=== PATIENT | male | born 1955 | race Caucasian/White ===

== ENCOUNTER 2018-07-08 16:20 | Inpatient (IN) | payer OTHER ==
[~2018-07-08] VITALS: Ht 185.4 cm; Wt 65.5 kg
[~2018-07-08 16:20] MED LIST: CASODEX50 MG PO; CORE25 PO; COUMADIN4 MG PO; COUMADIN5 MG PO; ENBREL50 MG/ML SQ; FLO4 PO; HYDROCHLOROTH12.5 M2 PO; LISINOPRIL10 MG PO; LOPERAMIDE HCL2 MG PO; LOPRESSOR100 MG PO; LUPRON DEPOT22.5 MG IM; MINTOX PLUS1 CTB PO; OYSTERCAL-D 5001 TAB PO; THE MEDICINE S150 MG PO; XGEVA120 MG/1.7 SC; [UNRECOGNIZED DRUG - OTHER] PO
--- NOTE | 2018-07-08 16:40 | NUR ---
PT WAS BROUGHT IN BY AMBULANCE FROM [facility] W/REVENUE INSPECTOR SOB SINCE LAST NIGHT. PT WAS SEEN AT CLINIC AT INSTITUTION WHERE AN XRAY WAS OBTAINED AND DETERMINED PT HAS HYDROPNEUMOTHORAX [place] [facility] [place] PT ABLE TO SPEAK IN CLEAR SHORT SENTENCES. PT PAUSES TO CATCH AIR. PT REPORTS HE USES CONDOM CATH DUE TO URINARY INCONTINENCE FROM RADIATION THERAPY TO TREAT PROSTATE CANCER. PACEMAKER W/DEFIBRILLATOR NOTED TO LEFT UPPER CHEST. PT STS HIS DEFIBRILLATOR IS [employer]. COMFORT MEASURES IMPLEMENTED. CALL LIGHT W/IN REACH. REPORT GIVEN TO VENITA MUKHERJEE TO ASSUME CARE OF PT.
[2018-07-08 17:27] LABS: BASOPHIL % 0.3 % (0-2); PLATELET COUNT 182 x10^3mcL (130-400)
[2018-07-08 17:31] LABS: RED CELL DISTRIBUTION WIDTH 17.9 % (11.5-14.5)
--- NOTE | 2018-07-08 17:42 | NUR ---
RECEIVED PT TO BED T1. PT ON 4L NC O2 AND PLACED ON FULL MONITORS. PT STS HIS PACEMAKER/DEFIBRILLATOR IS SET AT A RATE OF 70 AND HAS 90 DAYS OF BATTERY LEFT. PT HAS DIMINISHED POSTERIOR LUNG SOUNDS AND CLEAR ANTERIOR LUNG SOUNDS. SPEECH CLEAR. HOB UP 45 DEGREES. PT IS ORIENTED X 4. CIM GUARDS AT BEDSIDE. DR MCKEON AT BEDSIDE TO ASK PT QUESTIONS REGARDING REGULAR MEDICATIONS HE TAKES
[2018-07-08 17:47] LABS: BILIRUBIN TOTAL 0.8 mg/dL (0.20-1.00); CALCIUM 8.1 mg/dL (8.5-10.1); CARBON DIOXIDE 35.7 mmol/L (21-32); CREATININE SERUM 2.3 mg/dL (0.7-1.3); POTASSIUM SERUM 5.4 mmol/L (3.5-5.1); TOTAL PROTEIN, SERUM 7.9 g/dL (6.4-8.2)
[2018-07-08 17:50] LABS: ALBUMIN 3.2 g/dL (3.4-5.0)
--- NOTE | 2018-07-08 19:14 | NUR ---
REPORT GIVEN TO TRISTAN. PT REPOSITIONED UP IN BED AND IN POS OF COMFORT.
--- NOTE | 2018-07-08 19:15 | NUR ---
RECEIVED REPORT FROM BALBINA NATHAN AND ASSUMED CARE OF PATIENT. PATIENT LAYING ON GURNEY IN POSITION OF COMFORT, BREATHING EQUAL AND UNLABORED. SPEAKING IN FULL CLEAR SENTENCES. NOT IN ANY APPARENT DISTRESS. ON FULL BUTCHER MEAT. GUARDS AT BEDSIDE. WILL CONTINUE TO MONITOR.
--- NOTE | 2018-07-08 19:45 | NUR ---
EMPTIED 300ML OF CLEAR DESTINI URINE FROM LEG BAG. UA SENT TO LAB.
[2018-07-08 19:54] LABS: microscopic required? NO
[2018-07-08 20:10] LABS: UA SPECIFIC GRAVITY <=1.005 (1.005-1.035); urine erythrocyte NEGATIVE (NEGATIVE)
--- NOTE | 2018-07-08 20:55 | NUR ---
CONSENT SIGNED BY DR. MCKEON AND PATIENT FOR ADMINISTRATION OF FFP. AND FOR CHEST TUBE PLACEMENT. VERBALIZEDS UNDERSTANDING OF PROCEDURE AND BLOOD PRODUCT ADMINISTRATION.
--- NOTE | 2018-07-08 21:00 | NUR ---
PT. LAYING ON GURNEY IN POSITION OF COMFORT. BREATHING E/U. NOT IN ANY APPARENT DISTRESS. TOLERATED VITAMIN K ADMINISTRATION WELL. NO ADVERSE REACTIONS NOTED.
--- NOTE | 2018-07-08 21:10 | NUR ---
FFP ORDRED TO BE GIVEN PRIOR TO CHEST TUBE PLACEMENT. PER. DR. MCKEON FFP TO BE INFUSED OVER ONE HOUR.
--- NOTE | 2018-07-08 21:15 | NUR ---
FFP STARTED, PT. TOLERATING WELL.
--- NOTE | 2018-07-08 21:30 | NUR ---
FFP STARTED 15MIN AGO, PT. TOLERATING WELL. NO ADVERSE REACTIONS NOTED. WILL CONTINUE TO MONITOR.
[2018-07-08] MEDS ORDERED: FERROUSAL325 MG (22:24)
[2018-07-08] MEDS ORDERED: ALDACTONE25 MG GT (22:25)
[2018-07-08] MEDS ORDERED: PROA (22:25)
[2018-07-08] MEDS ORDERED: FUROSEMIDE20 MG (22:25)
--- NOTE | 2018-07-08 22:45 | NUR ---
PT. TOLERATED FFP INFUSION WELL. NO ADVERSE REACTIONS NOTE. PT. AAOX4, TALKING AND RESPONDING APPROPRIATELY. BREATHING E/U. SPEAKING IN FULL CLEAR SENTENCES. NOT IN ANY APPARENT DISTRESS AT THIS TIME. GURDS AT BEDSIDE. DR. MCKEON MADE AWARE OF COMPLETION OF FFD INFUSION.
[2018-07-09] VITALS (8 sets, daily range): BP systolic 81–97; BP diastolic 52–69; Ht 185.4 cm; Wt 65.5 kg
--- NOTE | 2018-07-09 | NUR ---
PT. REPORTS NAUSEA, DR. MCKEON MADE AWARE AND ZOFRN GIVEN PER EMAR. PT. TOLERATED WELL. WILL CONTINUE TO MONITOR.
--- NOTE | 2018-07-09 00:26 | NUR ---
DR. MCKEON AT BEDSIDE FOR CHEST TUBE PLACEMENT.
--- NOTE | 2018-07-09 01:00 | NUR ---
CHEST TUBE INSERTED TO RIGHT SIDE OF UPPER CHEST BY DR. MCKEON. DRAINIG SEROUS FLUID. SITE COVERED WITH STERILE PETROLATUM DRESSING AND COVERED WITH TAPE. CHEST TUBE HOOKED UP TO CONTINIOUS LOW SUCTION, CONTINIOUS BUBBLING NOTED IN "A" CHAMBER. APROX 400ML OF SEROUS FLUID OUT PUT NOTED. PT. SLEEPING, EASLILY ARROUSABLE. OPENS EYES TO VERBAL AND TACTILE STIMULATION. NOT IN ANY APPARENT DISTRESS. BREATHING E/U. WILL CONTINUE TO MONITOR.
--- NOTE | 2018-07-09 01:01 | NUR ---
CHEST TUBE ON WATER SEAL, WITH LOW SUCTION. CONTINUIOS BUBBLING NOTED TO WATER SEAL CHAMBER.
--- NOTE | 2018-07-09 02:05 | NUR ---
APROX 800ML OF SEROUS SANGUINEOUS DRAINGE NOTED IN DRAIN CHAMBER. PT. AWAKE AND ALERT. BREATHING E/U. REPORTS HE IS FEELING BETTER AND ITS EASIER TO BREATHE. GUARGS AT BEDSIDE. WILL CONTINUE TO MONITOR.
--- NOTE | 2018-07-09 02:13 | NUR ---
REPORT GIVEN TO KRISTOPHER NATHAN FOR FURTHER CARE OF PATIENT. ALL QUESTIONS AND CONCERNS ANSWERED.
--- NOTE | 2018-07-09 02:15 | NUR ---
B/P DECREADED TO 83/53, LEVO INCREASED TO 4MCG. DR. MCKEON MADE AWARE
--- NOTE | 2018-07-09 02:15 | NUR ---
RECEIVED REPORT FROM TRISTAN NATHAN FOR CONTINUITY OF CARE
--- NOTE | 2018-07-09 02:30 | NUR ---
1,000ML OF SEROUSANGUNIOUS DRAINAGE NOTED IN DRAINGE COMPARTMENT. DR. MCKEON MADE AWARE.
--- NOTE | 2018-07-09 02:30 | NUR ---
PT. TRANSFERED TO ICU BED 2 VIA GURNEY. SHYANN NATHAN AT BEDSIDE TO RECEIVE PT.
--- NOTE | 2018-07-09 02:53 | NUR ---
RECEIVED PT FROM ER VIA GURNEY ACCOMPANIED BY TRISTAN RN AND NEYMAR EMT. PT TRANSFERRED ONTO BED 2 WITH NO COMPLICATION. PT CONNECTED TO NUCLEAR CRITICALITY SAFETY ENGINEER, VITALS READING: PACED RHYTHM WITH HR 70, BP 87/62, MAP 71, RR 18, SPO2 99%, AXILLARY TEMP 97.8. PT IS A/OX4. SPEECH IS CLEAR. ABLE TO MAKE NEEDS KNOWN. RESPONDS TO VERBAL STIMULI. PUPILS ARE FIXED, 2 MM BILAT. DENIES CASEY. GCS=15. EENT FREE OF DISCHARGE. ORAL MUCOSA PINK AND MOIST. PT BREATHING IS E/U ON 4 L NC. LUNG SOUNDS TO THE RIGHT LUNG ARE DIMINSHED. LEFT LUNG IS CLEAR TO ANY AND DIMIN TO LLL. SYMMETRICAL CHEST EXPANSION NOTED. CHEST TUBE NOTED TO THE RIGHT UPPER WITH SEROSANGUINOUS FLUID NOTED. CHEST TUBE PLACED ON CONT LIS PER ER MD ORDER. S1/S2 HEART SOUNDS AUSCULTATED. CHEST WALL EQUAL AND SYMMETRICAL. PACEMAKER NOTED TO THE LEFT UPPER CHEST. PT C/O RIGHT SIDED CP, AT THE INSERTION OF THE CHEST TUBE, PT ASSISTED WITH POSITIONING. WEAK BUT PALPABLE PULSES X4 EXTREMITIES. SKIN IS WARM AND DRY. CAP REFILL <3 SECS. +2 PITTING EDEMA NOTED TO BLE. LFA AND RUE IV INTACT SECURED, LEVOPHED INFUSING @ 4 MCG/MIN. GENERALIZED WEAKNESS. PT ON BEDREST. LIMITED ROM TO RLE, LONG TERM CUFF IN PLACE. ABD IS SOFT/FLAT. BOWEL SOUNDS ACTIVE X4 QUADRANTS. NO BM NOTED. PT NOTED WITH CONDOM CATH IN PLACE, DRAINING YELLOW COLORED URINE INTO COLLECTION BAG SECURED AROUND HIS RLE. PER THE PT, HE IS INCONTINENT R/T RECIVING RADIATION FOR HIS PROSTATE CANCER. ECCHYMOSIS NOTED TO BUE. ERYTHEMA NOTED TO SACRAL AREA. PT ASSISTED TO REPOSITION Q2H AND PRN FOR COMFORT. PT IS CALM AND COOPERATIVE. 2 CIM LONG TERM GUARDS AT BEDSIDE. PT ORIENTED TO ROOM AND USE OF CALL LIGHT. BED IN LOW POSITION. CALL LIGHT IN REACH. WILL CONT TO MONITOR
--- NOTE | 2018-07-09 03:15 | NUR ---
NIBP 95/64, MAP 75. LEVOPHED TITRATED TO 2 MCG/MIN
--- NOTE | 2018-07-09 03:45 | NUR ---
NIBP 104/62, MAP 81. LEVOPHED TURNED OFF AT THIS TIME
--- NOTE | 2018-07-09 04:30 | NUR ---
NIBP 98/40, MAP 49. LEVOPHED RESUMED @ 2 MCG/MIN
--- NOTE | 2018-07-09 05:00 | NUR ---
NIBP 72/45, MAP 56. LEVOPHED TITRATED TO 4 MCG/MIN
--- NOTE | 2018-07-09 05:05 | NUR ---
KENNEL ATTENDANT AT BEDSIDE FOR AM LAB DRAW
[2018-07-09 05:29] LABS: BASOPHIL % 0.6 % (0-2); PLATELET COUNT 177 x10^3mcL (130-400)
[2018-07-09 05:32] LABS: RED CELL DISTRIBUTION WIDTH 17.5 % (11.5-14.5)
[2018-07-09 05:45] LABS: CARBON DIOXIDE 38.3 mmol/L (21-32); CREATININE SERUM 2.1 mg/dL (0.7-1.3); POTASSIUM SERUM 5.2 mmol/L (3.5-5.1)
--- NOTE | 2018-07-09 07:02 | NUR ---
REPORT GIVEN TO MACO NATHAN FOR CONTINUITY OF CARE. ALL QUESTIONS/CONCERNS ADDRESSED AT THIS TIME. ENDORSING ALL CARE
--- NOTE | 2018-07-09 08:14 | NUR ---
DR. PARRA AT BEDSIDE TO ASSESS PATIENT. UPDATES PROVIDED AND POC DISCUSSED. PLAN TO GIVE 250 ML BOLUS AND THEN GIVE MAINTAINENCE FLUIDS AT 40 ML/HR AND ATTEMPT TO TITRATED LOVEPHED OFF. WILL FOLLOW AND CONTINUE TO MONITOR.
--- NOTE | 2018-07-09 09:10 | NUR ---
SPO2 100% ON 3 L/MIN NASAL CANNULA, DECREASED FLOW TO 2 L/MIN.
--- NOTE | 2018-07-09 10:01 | NUR ---
SPOKE WITH [employer] TITLE VEHICLE SERVICE ATTENDANT. REQUESTED INTERROGATION. STATES THEY WILL HAVE LOCAL TITLE VEHICLE SERVICE ATTENDANT CALL UNIT AND SET UP TIME.
--- NOTE | 2018-07-09 10:04 | NUR ---
TECH AT BEDSIDE FOR ECHOCARDIOGRAM.
--- NOTE | 2018-07-09 15:45 | NUR ---
FAX SENT TO [facility] REQUESTING MEDICAL RECORDS, POLST. FAX CONFIRMATION RECEIVED. AWAITING RESPONSE FOR POL
[2018-07-09 15:51] LABS: APPEARANCE FLUID BLOODY; SOURCE FLUID THORACENTESIS
[2018-07-09 15:52] LABS: COLOR FLUID RED; RBC FLUID 12870 /cumm; WBC FLUID 1275 /cumm
--- NOTE | 2018-07-09 16:54 | NUR ---
DR. PARRA AT BEDSIDE TALKING TO PATIENT REGARDING NEED FOR CENTRAL LINE PLACEMENT. ALL QUESTIONS AND CONCERNS ADDRESSED. PATIENT CONSENTED FOR CENTRAL LINE. 500 ML NS BOLUS GIVEN PER DR. PARRA ORDER. ULTRASOUND AT BEDSIDE.
--- NOTE | 2018-07-09 17:17 | NUR ---
TRIPLE LUMEN CATHETER INSERTED TO RIJ BY DR. PARRA VIA STERILE TECHNIQUE. PATIENT TOLERATED WELL. CXR CALLED TO VERIFY PLACEMENT. WILL CONTINUE TO MONITOR.
--- NOTE | 2018-07-09 17:20 | NUR ---
MEDICAL RECORD INFORMATION SENT TO [facility] TO REQUEST POLST. CONFIRMATION RECEIVED
[2018-07-09 17:21] LABS: LYMPHOCYTE FLUID 27 %; MONOCYTE FLUID 10 %
--- NOTE | 2018-07-09 18:12 | NUR ---
NIBP 118/89, MAP 101. LEVOPHED DRIP TITRATED DOWN TO 2 MCG/MIN. WILL CONTINUE TO MONITOR.
--- NOTE | 2018-07-09 19:02 | NUR ---
RECEIVED REPORT FROM MACO NATHAN. ASSUMING ALL CARE
--- NOTE | 2018-07-09 19:20 | NUR ---
RECEIVED PT LAYING IN BED. PT IS A/OX4. SPEECH IS CLEAR. ABLE TO MAKE NEEDS KNOWN. RESPONDS TO VERBAL STIMULI. PUPILS ARE FIXED, 2 MM BILAT. GCS=15. EENT FREE OF DISCHARGE. ORAL MUCOSA PINK AND MOIST. TRACHEA MIDLINE. PT'S BREATHING IS E/U ON 2 L NC. LUNG SOUNDS TO THE RIGHT LUNG ARE DIMINSHED. LEFT LUNG IS CLEAR TO ANY AND DIMIN TO LLL. SYMMETRICAL CHEST EXPANSION NOTED. CHEST TUBE TO THE RIGHT UPPER CHEST PLACED ON CONT LIS, WITH SEROSANGUINOUS FLUID NOTED. S1/S2 HEART SOUNDS AUSCULTATED. CHEST WALL EQUAL AND SYMMETRICAL. PACEMAKER NOTED TO THE LEFT UPPER CHEST. PT IS ON LEVOHED @ 2 MCG/MIN. DENIES ANY CP. PALPABLE PULSES X4 EXTREMITIES. SKIN IS WARM AND DRY. + 1 PITTING EDEMA NOTED TO BLE. CAP REFILL < 3 SECS. LFA AND RUE IV INTACT/SECURED, NO S/S OF INFILTRATION NOTED. NS INFUSING @ 40 ML/HR. RIJ CVC IN PLACE, ALL PORTS PATENT. GENERALIZED WEAKNESS. PT ON BEDREST. LIMITED ROM TO RLE, JAIL CUFF SECURE TO PT'S BED. NO JOINT SWELLING/DEFORMITY NOTED. ABD IS SOFT/FLAT. BOWEL SOUNDS ACTIVE X4 QUADRANTS. PT HAD A MOD SIZE BROWN BM, PERICARE PROVIDED. PT NOTED WITH CONDOM CATH IN PLACE DRAINING VIA GRAVITY WITH YELLOW COLORED URINE. NO SCROTAL EDEMA NOTED. ECCHYMOSIS NOTED TO BUE. ERYTHEMA NOTED TO SACRAL AREA. 2 CIM JAIL GUARDS AT BEDSIDE. BED IN LOW POSITION. CALL LIGHT IN REACH. WILL CONT TO MONITOR
--- NOTE | 2018-07-09 19:45 | NUR ---
PT ASSISTED TO BSC. PT HAD A MOD SIZE FORMED BM, PERICARE PROVIDED. GOWN AND LINENS CHANGED. PT ASSISTED BACK IN BED AND CONNECTED TO FULL CLINICAL EXERCISE SPECIALIST. WILL CONT TO MONITOR
--- NOTE | 2018-07-09 21:35 | NUR ---
SPOKE TO DR. PARRA VIA TELEPHONE. UPDATED ON PT'S STATUS. MADE AWARE OF PT'S MOST RECENT CXR RESULTS. PER DR. PARRA, IT'S OK TO USE CENTRAL LINE. MADE AWARE CRX SHOWED QUESTION OF MILD RETRACTION OF THE CHEST TUBE. PER DR. PARRA, DR. SHARIF IS TO FOLLOW UP WITH A SURGEON IN THE MORNING. ORDER FOR CBC AND BMP. WILL CARRY OUT ORDERS
--- NOTE | 2018-07-09 23:00 | NUR ---
PT C/O ACHING LOWER BACK PAIN RATED 7/10. PT MEDICATED WITH NORCO PER EMAR. WILL CONT TO MONITOR
--- NOTE | 2018-07-10 01:30 | NUR ---
NIBP 80/48, MAP 59. LEVOPHED TITRATED TO 4 MCG/MIN
[2018-07-10 03:16] VITALS: BP 99/63
--- NOTE | 2018-07-10 03:45 | NUR ---
NIBP 118/60, MAP 74. LEVOPHED TITRATED TO 2 MCG/MIN
--- NOTE | 2018-07-10 04:25 | NUR ---
INSURANCE ANALYST AT BEDSIDE FOR AM LAB DRAW
[2018-07-10 04:52] LABS: BASOPHIL % 0.1 % (0-2); PLATELET COUNT 162 x10^3mcL (130-400)
[2018-07-10 04:59] LABS: RED CELL DISTRIBUTION WIDTH 17.4 % (11.5-14.5)
[2018-07-10 05:11] LABS: CALCIUM 8.1 mg/dL (8.5-10.1); CARBON DIOXIDE 35.1 mmol/L (21-32); CREATININE SERUM 1.6 mg/dL (0.7-1.3); POTASSIUM SERUM 4.8 mmol/L (3.5-5.1)
--- NOTE | 2018-07-10 06:18 | NUR ---
PT C/O ACHING LOWER BACK PAIN RATED 8/10. PT MEDICATED WITH NORCO PER EMAR.
--- NOTE | 2018-07-10 07:18 | NUR ---
REPORT GIVEN TO KAYLENE NATHAN FOR CONTINUITY OF CARE. ALL QUESTIONS/CONCERNS ADDRESSED AT THIS TIME. ENDORSING ALL CARE
--- NOTE | 2018-07-10 07:20 | NUR ---
REPORT GIVEN BY VENITA BOOTHE. ALL QUESTIONS ANSWERED.
--- NOTE | 2018-07-10 07:20 | NUR ---
\REPORT GIVEN BY VENITA BOOTHE. ALL QUESTIONS ANSWERED.
--- NOTE | 2018-07-10 07:25 | NUR ---
PATIENT IS IN BED SLEEPING, BED IS TO THE LOWEST POSITION. PATIENT IS ON 2L OF NASAL CANNULA. PATIENT IS BREATHING ADEQUATELY AND THERE ARE NO SIGNS OF RESPIRATORY DISTRESS. FLARE MAN IN PLACE, NSR. RIJ IS INTACT AND CDI. ABD IS ROUND AND FIRM. CONDOM CATHETER IS INTACT AND DRAINING VIA GRAVITY. URINE IS YELLOW IN COLOR WITH ADEQUATE OUTPUT. BUE ECCHYMOSIS. PATIENT IS CALM AND COOPERATIVE, AND ABLE TO FOLLOW COMMANDS. PRESSURE POINTS ARE OFFLOADED WITH PILLOWS. CALL LIGHT IS WITHIN REACH, WILL CONTINUE TO MONITOR.
[2018-07-10 07:30] VITALS: BP 98/61
--- NOTE | 2018-07-10 08:47 | NUR ---
SUCTION OFF, PER DR PARRA. PATIENT STABLE, WILL CONTINUE TO MONITOR.
--- NOTE | 2018-07-10 08:49 | NUR ---
LEVOPHED LOWERED TO 1 MCG/MIN. BP: 108/64 MAP:76
--- NOTE | 2018-07-10 08:58 | NUR ---
DR PARRA AT BEDSIDE, HAVING PATIENT DISCUSSION ON CODE STATUS AND HOSPICE.
--- NOTE | 2018-07-10 09:00 | NUR ---
PER DR PARRA ORDER, CHEST TUBE REMOVED FROM SUCTION AND PLACED TO WATER SEAL ONLY.
--- NOTE | 2018-07-10 09:20 | NUR ---
ASSISTED PATIENT WITH ORAL CARE.
--- NOTE | 2018-07-10 10:00 | NUR ---
DR BELTRAN AT BEDSIDE TO ASSESS PATIENT. UPDATES PROVIDED BY NURSING. NEW ORDERS RECEIVED. WILL CARRY OUT ORDERS. WILL CONTINUE TO MONITOR.
--- NOTE | 2018-07-10 11:24 | NUR ---
PATIENT ASSISTED WITH BEDBATH, AND LINEN CHANGE. PATIENT HAD A BM, SMALL AMOUNT OF BROWN STOOL. PATIENT ALSO ASSISTED WITH APPLICATION OF NEW CONDOM CATHETER. PATIENT STABLE, WILL CONTINUE TO MONITOR.
[2018-07-10 11:51] VITALS: BP 97/61
--- NOTE | 2018-07-10 12:30 | NUR ---
TURNED OFF LEVOPHED AT THIS TIME. PATIENTS BP: 102/51 MAP:72
--- NOTE | 2018-07-10 13:01 | NUR ---
PATIENT HAD A BM. STOOL WAS BROWN IN COLOR, MODERATE AMOUNT. PATIENT ASSISTED WITH CHANGE IN LINENS. PATIENT ASKED TO BE SAT UP TO USE THE RESTROOM, PATIENT ASSITED. PATIENT STABLE, WILL CONTINUE TO MONITOR.
--- NOTE | 2018-07-10 13:30 | NUR ---
SPOKE WITH [employer] FROM [facility] WHO PROVIDED THE FOLLOWING INFORMATION FOR PATIENT'S [employer] SCIENTIFIC AICD. SERIAL# [id number] MODEL # [id number] SOFTWARE# [id number] IMPLANTED AT [facility] JUNE 19, 2007.
--- NOTE | 2018-07-10 15:15 | NUR ---
APPLIED NEW DRESSING TO REINFORCE CHEST TUBE, PER DR PARRA
[2018-07-10 15:18] VITALS: BP 91/56
--- NOTE | 2018-07-10 16:42 | NUR ---
REPORT GIVEN TO VENITA GOLDMAN. ALL QUESTIONS ANSWERED.
--- NOTE | 2018-07-10 17:20 | NUR ---
PATIENT ARRIVED FROM ICU VIA WHEELCHAIR, WITH RN AT SIDE. NO ACUTE STRESS NOTED. PATIENT DENIES SOB, ON 2L NC. PATIENT IS STABLE AT THIS TIME. VITAL SIGN; BP:97/51 HR 71 RR:24 TEMP 98.8 PULSE OX 98% ON 2L NC. PATIENT DENIES PAIN. PATIENT IS CIM WITH X2 GUARDS AT BEDSIDE FOR SAFETY. PATIENT HAS A RIGHT IJ, LFA, AND RUE IV. IV SITE CDI, NO REDNESS, SWELLING OR PAIN NOTED. PATIENT HAS A CHEST TUBE TO RIGHT CHEST, CHEST TUBE IS NOT CURRENTLY ON SUCTION. PATIENT HAS A PACEMAKER TO LEFT CHEST, 100% PACED, TELE MONITOR IN PLACE, PATIENT DENIES CHEST PAIN. CALL LIGHT WITHIN REACH, BED IN LOW POSITION. WILL CONTINUE TO MONITOR.
--- NOTE | 2018-07-10 18:35 | NUR ---
PATIENT IS EATING IN BED, PATIENT TOLERATING DIET. PATIENT IS HAVING PACEMAKER INTERPRETATED AT THIS TIME. NO ACUTE DISTRESS NOTED. PATIENT IS STABLE AT THIS TIME. CALL LIGHT WITHIN REACH, BED IN LOW POSITION, CIM X2 AT BEDSIDE FOR SAFETY PRECAUTION. WILL CONTINUE TO MONITOR, AND ENDORSE REPORT TO NIGHT NURSE.
[2018-07-10 20:47] VITALS: BP 94/53
--- NOTE | 2018-07-10 21:31 | NUR ---
Awake and verbally responsive. No respiratory distress noted on 02 2lpm via n/c. Medicated as ordered with norco 1 tab for c/o right sided pain 7/10 with help. Chest tube intact to right chest water seal. No leakage noted. Will cont.to monitor. Call light within reach.
--- NOTE | 2018-07-11 05:00 | NUR ---
Afebrile. No significant change in condition noted. Medicated for c/o right side chest tube site pain with help. No cough or congestion observed. On zosyn IV. Had breathing treatment. In no apparent distress.
[2018-07-11 06:15] VITALS: BP 124/48
[2018-07-11 06:26] VITALS: BP 84/53
[2018-07-11 07:37] LABS: BASOPHIL % 0.6 % (0-2); PLATELET COUNT 141 x10^3mcL (130-400)
[2018-07-11 07:41] LABS: CALCIUM 8.6 mg/dL (8.5-10.1); CARBON DIOXIDE 32.1 mmol/L (21-32); CREATININE SERUM 1.4 mg/dL (0.7-1.3); POTASSIUM SERUM 4.7 mmol/L (3.5-5.1)
--- NOTE | 2018-07-11 08:00 | NUR ---
PATIENT RECEIVED AWAKE AND WITH MINIMAL MOVEMENT. PATIENT WANTS THE STAFF MINIMAL MOVEMENT NOTED. PATIENT WANTS THE STAFF TO GET THIS AND THAT FOR HIM AND REMINDED THE PATIENT HE NEEDS TO MOVE ABOUT AND KEEP MOBILTY OR HE CAN SUFFER THE POSSIBLE CLOT FORMATION, CONSTIPATION OR STASIS OF URINE. PATIENT HAS A GUARD AT BEDSIDE AND SECURITY HAS BEEN MIAINTAINED. PATINET STATES IT HURTS TO MOVE AND HE NEEDS HELP. PATIENT HAS BEEN ON THE CHEST TUBE TO DRAINAGE AND THE OUTPUT IS MINIMAL PER REPORT AND SUCTION IS OFF AT THIS TIEM THE DRESSING INTACT AND SOME FLUCTUATION NOTED TO THE FLOW BUT NO SIGNS OF LEAKING OF AIR. VITALS AT THIS TIME AT 97.0, 70, 16, 84/53, 96 ON 2 LITERS NASAL CANNULA. PATIENT ON HHN TREATMENTA DN HAS BEEN ON ZOSYN AND IV FLUIDS OF NS A SORERED. NOTED LABS ARE THE H AHD H O F8.4/25, SODIUM AT 127, AND PT AT 14.0 AND PTT AT 30.5. PATINE THS CHEST XRAY THAT IS NEGATIVE AND PATEINT HAS BEEN IWTH S31 ON THE MONITOR AND PACED. HX OF A GIVE, CHF, PROSTATE CANCER ADN HEP C. GUARDS AT BEDSIDE AND SECURITY HAS BEEN MAINTAINED.
[2018-07-11 10:13] VITALS: BP 93/41
--- NOTE | 2018-07-11 11:50 | NUR ---
PATIENT HAD A BM AND WAS ABLE TO GET UP TO THE BEDSIDE COMODE. WILL CONTINUE TO MONITOR INDICATED. PATIENT HAD NORCO AND SEEM EFFECTIVE AT THIS TIME IN RELIEVING PAIN.
[2018-07-11 13:36] VITALS: BP 102/48
[2018-07-11 17:29] VITALS: BP 91/55
--- NOTE | 2018-07-11 17:53 | NUR ---
ALOUND TO DRAIN THE FLUID FROM THE CHEST TUB AND APPROIMATELY 600ML SO FAR. THE CORPORATE FINANCIAL ANALYST HAD NOT RECEIVED ANY OUTPUT AND DID NOT DRAIN THE TUBING AND THE RESULT WAS 0 OUTPUT.
--- NOTE | 2018-07-11 18:56 | NUR ---
PATIENT HAS BEEN ON BEDRESTR AND WAS SEEN BY DR PARRA AND THE CHEST TUBE CONTINEUD TO BE ON GRAVITY FOR SHAKIRA. PATIENT CASEY HAD 600 OPUTPUT AND NOTED THE TUBING IS HOLDING SOME AND A PIECE OF TISSUE WAS OBSTRUCTING THE TUBING AND ONCE MANIPULATED THE OBTRUCTION THE CHEST TUB IS DRAINING MORE FREELY PATINE THAS GUARD AT BEDSIDE AND SECURITY MAINTAINED.
--- NOTE | 2018-07-11 19:00 | NUR ---
PATIENT HAS BEEN ON BEDREST AND WAS SEEN BY DR PARRA AND THE CHEST TUBE CONTINUED TO BE ON GRAVITY FOR SHAKIRA. PATIENT HAS HAD 600 OPUTPUT AND NOTED THE TUBING IS HOLDING SOME AND A PIECE OF TISSUE WAS OBSTRUCTING THE TUBING AND ONCE MANIPULATED THE OBTRUCTION THE CHEST TUB IS DRAINING MORE FREELY PATIENT HAS GUARD AT BEDSIDE AND SECURITY MAINTAINED. =
--- NOTE | 2018-07-11 20:16 | NUR ---
Awake and verbally responsive. No respiratory distress noted on 02 2lpm via n/c. Denies pain at this time. Able to move side to side in bed. Right chest tube on water seal. Serosanguineous drainage noted. No leaking observed. Will cont.to monitor. Call light within reach.
[2018-07-11 20:37] VITALS: BP 102/48
--- NOTE | 2018-07-12 04:10 | NUR ---
Afebrile. No significant change in condition noted. Pain managed with norco. Chest tube intact and no leaking noted. Turned and repositioned self in bed. Condom catheter in place draining yellow urine. cont.on IV zosyn.
[2018-07-12 05:08] VITALS: BP 97/56
[2018-07-12 06:33] LABS: CALCIUM 8.8 mg/dL (8.5-10.1); CARBON DIOXIDE 32.7 mmol/L (21-32); CREATININE SERUM 1.3 mg/dL (0.7-1.3)
[2018-07-12 08:40] LABS: PLATELET COUNT 153 x10^3mcL (130-400)
[2018-07-12 08:41] LABS: RED CELL DISTRIBUTION WIDTH 16.6 % (11.5-14.5)
[2018-07-12 09:00] VITALS: BP 88/53
--- NOTE | 2018-07-12 09:36 | NUR ---
COMPLAINED OF 8/10 RIGHT CHEST TUBE SITE. DRESSINGS INTACT. GIVEN NORCO 1 TAB PO. INSTRUCTED TO DO INCENTIVE SPIROMETER AFTER AN HOUR AND STATED: I JUST DID IT. I DONT WANT TO BE PUSHED." EXPLAINED THE EFFECT OF USING IS BUT STATED" I WANT TO SLEEP. I DID NOT SLEEP LAST NIGHT" CALL KARIMI WITHIN REACH. BED RAILS UP. 2 GUARDS AT BEDSIDE.
--- NOTE | 2018-07-12 09:48 | NUR ---
PAGE AT THIS TIME. LEFT PHONE # TO BE CACK BACK REGARD CHEST TUBE LEAKING.
--- NOTE | 2018-07-12 09:59 | NUR ---
DR. PARRA CALL BACK WAS MADE AWARE, CHEST TUBE LEAKING W/ SEROSANG. AND DRESSING RE-INFORCED. DRAINING 15ML BEGINING THIS SHIFT. NEW ORDER FOR CXR. PER WILL FOLLOW UP.
--- NOTE | 2018-07-12 12:04 | NUR ---
PLEUR VAC ALMOST FILLING UP. PLEUR VAC CHANGED TO A NEW ONE. DRAINING SEROSANGUINOUS. NO SHORTNESS OF BREATH. RR [address] PARRA HERE AND REQUEST TO SUTURE TO SITE TO PATIENT. NO DRAINS AT CT SITE NOTED.
--- NOTE | 2018-07-12 12:31 | NUR ---
PAGED DR. BOJORQUEZ TO REQUEST SUTURING OF CT SITE.
[2018-07-12 12:35] VITALS: BP 83/55
[2018-07-12 12:57] VITALS: BP 83/55
--- NOTE | 2018-07-12 13:03 | NUR ---
RECEIVING BREATHING TREATMENT. DENIES ANY SHORTNESS OF BREATH.HOB UP 30 DEGREES.
--- NOTE | 2018-07-12 14:01 | NUR ---
Initial Nutrition Assessment- 223T/B ALIZA BOWER MR Dx: Pneumothorax, hypotension PMHx: AFIB, CAD, CHF, HTN, pneumonia PSHx: none Labs: (07/12) NA 131L, BUN 35H Meds: Ativan, coreg, zosyn Diet: cardiac PO Intake: (07/12) breakfast 100% Ht: 185.42 cm (73") Wt: 65.5 kg (144#) BMI: 19.1 kg/m2 IBW: 184# (83 KG) %IBW: 78 UBW: ask pt. Age: 62/M Food Allergies: NKFA Skin: dressing to RT flank area Parish: 18 Edema: none GI: last BM: 07/11 Per H&P, pt is a 62 yo male h/o metastatic prostate CA, CHF cardiomyopathy pacer, pleuraleffusions [facility] resident. Presented to the ED with increased SOB throughout the day. This had been going on for days. RDN visit (07/12): Pt was alert and awake and said that he does not have N/V but has diarrhea. He has good appetite and consumed 100% of breakfast. He said that he has lactose intolerance and cannot consume milk or ice-cream, other form of dairy are fine. He also has peanut allergy. This information was forwarded to victims advocate clerk/specialist Geri. Pt is an inmate and consumes 1 boost drink/day in [facility] for his weight loss. Problem with: N: no V: no D: yes C: no Problems with: Chewing: no Swallowing: no Current appetite: good Recent wt change: unknown %wt change: unknown Vitamin/Supplement use: none Special diet at home: N/A Physical activity: N/A Education: No diet education provided at this time. Estimated Nutritional Needs Based on actual body weight 65.5 kg Energy: 5231-6246 kcal/d (30-35 kcal/kg- weight gain) Protein: 79-98 g/d (1.2-1.5 g/kg)-maintenance and preservation of lean body mass Fluid: 9040-9060 ml/d (1 ml/kcal-fluid balance) or per doctor Nutrition Diagnosis 1. Increased nutrient needs related to medical condition as evidenced by pneumonia. Intervention 1. Continue Cardiac diet. Monitor/Evaluate Goal: PO intake at least 75% of estimated needs Monitor: PO intake, Labs, GI function F/U in 3-5 days as moderate risk 07/15-
--- NOTE | 2018-07-12 14:01 | NUR ---
1. Continue Cardiac diet.
--- NOTE | 2018-07-12 15:04 | NUR ---
DR. BOJORQUEZ CALLED BACK AND INFORMED HIM RE- BLEEDING AT CHEST TUBE SITE, DRESSINGS RE-ENFORCED AND CXR DONE. STATED " I WILL BE THERE THIS AFTERNOON".
[2018-07-12 17:27] VITALS: BP 93/55
--- NOTE | 2018-07-12 17:34 | NUR ---
PATIENT SEEN BY MD BOJORQUEZ AND REMOVED CHEST TUBE DRESSINGS. NO ACTIVE BLEEDING NOTED. DRESSINGS CHANGED WITH STERILE 4X4 AND OCCLUSIVE DRESSINGS APPLIED.CALL KARIMI WITHIN REACH. BED LOW AND LOCKED. PLEURVAC DRAINING SEROSANGUINOUS FLUID. NOTED CREPITUS RIGHT UPPER CHEST. ENCOURAGED USE OF IS.HOB UP 40 DEGREES.
--- NOTE | 2018-07-12 19:30 | NUR ---
RECEIVED PT IN BED RESTING.NO ACUTE RESPIRATORY DISTRESS NOTED.DENIES ANY PAIN AT THIS TIME.ECCHYMOSIS TO BUE.BLANCHABLE REDNESS TO SACRAL AREA.RIGHT SIDE CHEST TUBE SITE,DRESSING CDI.IV SITE PATENT AND INTACT. USES COMMODE. BED IN LOWEST POSITION,CALL LIGHT WITHIN REACH. GUARD AT BEDSIDE. WILL CONTINUE TO MONITOR.
--- NOTE | 2018-07-12 21:02 | NUR ---
PT C/O PAIN AT THE BACK 11/02. MEDICATED NORCO 5/325 MG PO ORDERED. WILL CONTINUE TO MONITOR.
[2018-07-12 22:34] VITALS: BP 101/64
--- NOTE | 2018-07-13 03:18 | NUR ---
PT C/O BACK PAIN 11/02. MEDICATED NORCO 5/325 MG PO ORDERED. WILL CONTINUE TO MONITOR.
--- NOTE | 2018-07-13 05:10 | NUR ---
PT AAOX4.NO SOB NOTED.DENIES ANY PAIN AT THIS TIME. BED IN LOWEST POSITION,CALL LIGHT WITHIN REACH. WILL CONTINUE TO MONITOR.
--- NOTE | 2018-07-13 05:44 | NUR ---
PT C/O SOMETHINGS DRIPPING FROM THE CHEST TUBE. ATTEMPTED TO CHECK THE DRESSING AND OFFER TO CHANGE IT BUT PT REFUSED.PER PT MAYBE LATER.DIDN'T NOTICED DRIPPING AT THIS TIME. CHARGE CASSIE AT BEDSIDE.WILL CONTINUE TO MONITOR.
[2018-07-13 05:58] VITALS: BP 98/55
[2018-07-13 06:46] LABS: CALCIUM 8.9 mg/dL (8.5-10.1); CARBON DIOXIDE 31.9 mmol/L (21-32); CHLORIDE SERUM 95 mmol/L (98-107); CREATININE SERUM 1.2 mg/dL (0.7-1.3); GFR1 > 60 mL/min; GLUCOSE SERUM 108 mg/dL (74-106); POTASSIUM SERUM 4.4 mmol/L (3.5-5.1); SODIUM SERUM 131 mmol/L (136-145)
[2018-07-13 06:50] LABS: BASOPHIL % 0.7 % (0-2); PLATELET COUNT 170 x10^3mcL (130-400)
--- NOTE | 2018-07-13 07:21 | NUR ---
CARE ENDORSED TO DAY NURSE CELESTE.
--- NOTE | 2018-07-13 07:27 | NUR ---
SEEN ASLEEP ON INITIAL ROUNDS. EUPNEIC ON 2LPM VIA NC. RIGHT CHEST TUBE INTACT. DRY OCCLUSIVE DRESSING. PLEUR VAC ON WATER SEAL DRAINING SEROSANGUINOUS FLUID. AWAITING CXR. CALL SACHI COX. BED LOW AND LOCKED AND ALARM ON .
[2018-07-13 08:01] LABS: RED CELL DISTRIBUTION WIDTH 17.3 % (11.5-14.5)
[2018-07-13 09:15] VITALS: BP 102/63
--- NOTE | 2018-07-13 09:49 | NUR ---
ASSISTED UP TO CHAIR. DOING HIS IS 500-750ML. INSTRUCTED NOT TO GET BACK TO BED WITHOUT CALLING RN. CALL LIGHT WITHIN REACH.
--- NOTE | 2018-07-13 09:51 | NUR ---
REFUSED TO SIT OOB TO CHAIR FOR BREAKFAST BUT AGREED TO SIT ION SIDE OF BED TO EAT FOR 20 MIN.
--- NOTE | 2018-07-13 10:30 | NUR ---
ASSISTED BACK TO BED. CHEST TUBE TO PLEUR VAC INTACT. NO LEAK. HOB AT 30 DEGREES. SIDERAILS UP AND CALL KARIMI WITHIN REACH.
--- NOTE | 2018-07-13 11:30 | NUR ---
MD ADAM HERE AND NOTIFIED AND REVIEWED TODAYS CXR AND FOUND NO PNEUMOTHORAX. PATIENT WAS SEEN AND EVALUATED BY MD ADAM AND STATED: " YOU LOOK GOOD!"
[2018-07-13 12:25] VITALS: BP 94/55
--- NOTE | 2018-07-13 14:31 | NUR ---
WAS ASSISTED BY TOOL MACHINIST TO COMMODE THEN TO CHAIR. CHEST TUBE INTACT AND DRAINING SEROSANGUINOUS FLUID. WATCHING TV WITH 2 GUARDS AT BEDSIDE. CALL KARIMI WITHIN REACH.
[2018-07-13 16:41] VITALS: BP 101/57
--- NOTE | 2018-07-13 19:01 | NUR ---
RESTING IN BED. NOT IN ANY DISTRESS. CALL KARIMI WITHIN REACH.
--- NOTE | 2018-07-13 19:22 | NUR ---
PT RECEIVED A/O X4, ABLE TO MAKE NEEDS KNOWN. TELE #31, DENIES CP/PRESSURE. PULSES PALPABLE, NO EDEMA PRESENT. LUNG SOUNDS DIM TO ROBERT BASES, BREATHING IS EVEN AND UNLABORED ON 2L NC, NO RESP DISTRESS NOTED. RIGHT CHEST TUBE IN PLACE, WATER SEAL, TIDALING NOTED, DRSG CDI. ABD SOFT AND NONDISTENDED, BOWEL TONES ACTIVE X4 QUAD, DENIES N/V. CONDOM CATH IN PLACE, YELLOW URINE NOTED IN DRAINAGE BAG. GENERALIZED WEAKNESS, AMBULATORY WITH ASSIST. ECCHYMOSIS TO BUE AND NECK, BLANCHABLE REDNESS TO SACRAL AREA. PT DENIES PAIN AT THIS TIME. IV TO LFA, PATENT AND INTACT, SITE FREE FROM REDNESS OR SWELLING. BED IN LOWEST SETTING, SIDE RAILS UP X2, CALL LIGHT WITHIN REACH. GUARDS AT BEDSIDE. WILL CONT TO MONITOR.
[2018-07-13 21:45] VITALS: BP 99/61
--- NOTE | 2018-07-14 01:25 | NUR ---
PT C/O 8 BACK PAIN, PRN NORCO GIVEN ORDERED. NO ACUTE DISTRESS NOTED. WILL CONT TO MONITOR.
[2018-07-14 06:44] VITALS: BP 135/72
--- NOTE | 2018-07-14 07:15 | NUR ---
RECEIVED PATIENT AWAKE/ALERT IN BED, NO C/O PAIN AT THIS TIME. IV LFA INTACT AND PATIENT, RT CHEST TUBE INTACT, DRESSING CD ON WATER SEAL W/ SEROSANG DRAINAGE NOTED. TELE #31 NOTED. POC UPDATED. ENCOURAGE OOB TID WITH MEALS. CALL LIGHT IN REACH.
[2018-07-14 07:17] VITALS: BP 103/65
[2018-07-14 07:32] LABS: CARBON DIOXIDE 30.1 mmol/L (21-32); CHLORIDE SERUM 95 mmol/L (98-107); GFR1 > 60 mL/min; GLUCOSE SERUM 112 mg/dL (74-106); POTASSIUM SERUM 4.3 mmol/L (3.5-5.1); SODIUM SERUM 128 mmol/L (136-145)
--- NOTE | 2018-07-14 07:33 | NUR ---
PT SLEPT WELL THROUGHOUT THE EVENING. BREATHING IS EVEN AND UNLABORED ON 2L NC, NO RESP DISTRESS NOTED. RT CHEST TUBE IN PLACE DRSG CDI, WATER SEAL AND TIDALING NOTED; TOTAL OUTPUT-250 ML SEROUSANGUINEOUS. CONDOM CATH IN PLACE, YELLOW URINE NOTED IN DRAINAGE BAG. PT C/O 11/02 HEADACHE, PRN TYLENOL GIVEN ORDERED. IVF INFUSING WELL TO LFA, SITE FREE FROM REDNESS OR SWELLING. NO ACUTE CHANGES ENCOUNTERED DURING SHIFT. ALL NEEDS MET. CALL LIGHT WITHIN REACH. GUARDS AT BEDSIDE. CONTINUITY OF CARE ENDORSED TO AM NURSE. ALL QUESTIONS AND CONCERNS ADDRESSED.
[2018-07-14 07:47] LABS: BASOPHIL % 0.9 % (0-2); PLATELET COUNT 194 x10^3mcL (130-400)
[2018-07-14 07:48] LABS: RED CELL DISTRIBUTION WIDTH 17.2 % (11.5-14.5)
--- NOTE | 2018-07-14 08:58 | NUR ---
PATIENT RESTING IN BED CALM, NO DISTRESS NOTED. CALL LIGHT IN REACH. ALL PO MEDS AND NORCO 1 TAB PO ADMINISTERED. C/O BACK PAIN 11/02. ZOSYN IVPB INFUSING TO LFA IV PATENT, WARM BLANKET GIVEN PER REQUEST. GUARDS REMAIN AT BEDSIDE.
--- NOTE | 2018-07-14 10:02 | NUR ---
CALL RT FOR BREATHING TX PATIENT REQUEST FOR SOB WHEN PATIENT UP TO BSC, CHECK O2 SAT 96%; NEEDS ATTENDED.
--- NOTE | 2018-07-14 11:35 | NUR ---
CALLED AND SPOKE TO (SURGEON) AND RELAYED TO HIM THE MESSAGE FROM (MASTER GLAZIER) TO EVALUATE PT CHEST TUBE IN REGARDS TO CURRENT CHEST XRAY RESULT FOR TODAY. READ TO CXR RESULT AND RECEIVED FROM TO PREPARE PT FOR CHEST TUBE REPLACEMENT. TAYLOR NATHAN ASSIGNED TO THIS PT MADE AWARE OF ABOVE.
--- NOTE | 2018-07-14 11:52 | NUR ---
PATIENT UP IN CHAIR, ASSISTING BACK TO BED. INFORM PATIENT NEED CONSENT FOR CHEST TUBE PLACEMENT PATIENT REFUSED TO SIGN STATED WANT TO TALK TO DR. BOJORQUEZ FIRST.
[2018-07-14 12:00] VITALS: BP 103/63
--- NOTE | 2018-07-14 13:39 | NUR ---
PATIENT RESTING IN BED, DUE MEDS GIVEN. TYLENOL 650MG PO GIVEN FOR RT SIDE CHEST 08/02 AND PER PATIENT REQUEST. ZOSYN IVPB INFUSING WELL TO LFA IV PATIENT. NEEDS ATTENDED. CALL LIGHT IN REACH. 2 GUARDS AT BEDSIDE.
--- NOTE | 2018-07-14 15:17 | NUR ---
PATIENT CALL FOR RN, C/O BACK PAIN IS 8/10 AND CHEST TUBE SITE, NORCO 1 TAB PO ADMINISTERED. PATIENT STATED CONDOM CATH KEEP COMING OFF, INSTRUCT PATIENT TO USE URINAL PATIENT REPLY DIDN'T KNOW WHEN HE'S URINATE. PATIENT REQUEST FOR HUSTON CATHETER, RN INSTRUCT PATIENT OF HAVING HUSTON WOULD GET PATIENT RISK OF INFECTION, PATIENT DISREGARD NURSE TEACHING AND WANT NURSE TO CALL DOCTOR FOR HUSTON. RE-INFORCED PATIENT WITH RISK OF INFECTION W/ HUSTON CATHETER.
[2018-07-14 16:02] VITALS: BP 108/69
--- NOTE | 2018-07-14 16:05 | NUR ---
DR. BOJORQUEZ AT BEDSIDE TALK TO PATIENT AND EXPLAINED THE PROCEDURE TO PATIENT REMOVED OLD CHEST TUBE AND PLACE NEW CHEST TUBE. PATIENT AGREE AND SIGNED. ALL SUPPLIES SETUP ON TABLE FOR . GOMEZ RN AT BEDSIDE TO ASSISTING PATIENT.
--- NOTE | 2018-07-14 16:17 | NUR ---
CAME TO SEE PATIENT, DECREASE IVF TO 20ML/HR AND ORDER COUMADIN.
--- NOTE | 2018-07-14 16:44 | NUR ---
PATIENT LAYING IN BED TOLERATED WELL, RT CHEST TUBE PLACEMENT COMPLETED, DR. BOJORQUEZ ORDER STAT CXR AND CALL FOR RESULT. CURRENTLY NOT SETUP TO SUCTION. CONT TO MONITOR.
--- NOTE | 2018-07-14 17:07 | NUR ---
CALL BACK CLARIFIED COUMADIN 4MG PO, PER DR. BELTRAN TO GIVE PATIENT ONE DOSE TONIGHT, PT/INR TOMORROW. SPOKE TO PHARMACY PER DOSE TONIGHT.
--- NOTE | 2018-07-14 17:50 | NUR ---
PATIENT SAT UP IN BED EATING HIS DINNER, NO COMPLAIN. PO MEDS AND COUMADIN 4MG PO ADMINISTERED. ASSESS RT CHEST TUBE SECURED, NO LEAKING NOTED. OUTPUT 852ML SEROSANG. CONT TO MONITOR. 2 GUARDS REMAIN AT BEDSIDE.
--- NOTE | 2018-07-14 18:38 | NUR ---
CALL DR. BOJORQUEZ WITH CXR RESULT SHOWS THERE HAS BEEN INTERVAL REPOSITIONING OF THE RIGHT CHEST TUBE WITH INTERVAL DEVELOPMENT OF A MODERATE PNEUMOTHORAX NOTED OF THE RIGHT LUNG BASE. PER DR. BOJORQUEZ PLACE ON SUCTION AND NO SETTING GIVEN. CXR IN AM.
--- NOTE | 2018-07-14 18:47 | NUR ---
PAGE DR. ADAM REGARD CXR RESULT. WAITING FOR MD TO CALL BACK.
--- NOTE | 2018-07-14 19:02 | NUR ---
ENDORSE CARE TO TONYA NATHAN , F/U WITH DR. ADAM FOR CHEST TUBE SETTING. PATIENT RESTING IN BED AWAKE. NO ACUTE DISTRESS NOTED. NO C/O PAIN.
--- NOTE | 2018-07-14 19:12 | NUR ---
SPOKE TO DR. ADAM ABOUT PT'S CHEST TUBE, PER DR. ADAM, CONNECT THE CHEST TUBE TO WALL SUCTION FOR 12 HOURS. PRIMARY NURSE TONYA MADE AWARE.
--- NOTE | 2018-07-14 19:12 | NUR ---
SPOKE TO DR. ADAM ABOUT PT'S CHEST TUBE, PER DR. ADAM, CONNECT THE CHEST TUBE TO WALL SUCTION. PRIMARY NURSE TONYA MADE AWARE.
[2018-07-14 19:20] VITALS: BP 104/67
--- NOTE | 2018-07-14 19:20 | NUR ---
RECEIVED PT ASLEEP BUT EASILY AROU[place] WITH GUARDS AT BEDSIDE.BREATHIGN EASY AND NON-LABORED.O2 @ 2L/MIN VIA N/C.O2 SAT @ 100%DIMINISHED BREATHSOUNDS.CHST TUBE IN PLACED ATTACHED TO SUCTION ORDERED.ENCOURAGED USE OF INCENTIVE SPIROMETER.DENIES CHESTPAIN.BP 104/67 MMHG,HR 67.C/O INCISION PAIN AND GENERALIZED BODY ACHES 10/02.NORCO 5/325 MG PO ADMINISTERED.COMFORT MEASURES RENDERED.WILL CONTINUE TO MONITOR.
--- NOTE | 2018-07-14 23:47 | NUR ---
RECEIVED PT FROM TONYA NATHAN. PT IS RESTING IN BED WITH EYES CLOSED, BUT IS EASILY AROUSABLE. BREATHING IS EVEN AND UNLABORED ON 2L NC, RT CHEST TUBE IN PLACE TO WALL SUCTION, NO RESP DISTRESS NOTED. IVF INFUSING WELL, SITE FREE FROM REDNESS OR SWELLING. NO ACUTE DISTRESS NOTED. GUARDS AT BEDSIDE. CALL LIGHT WITHIN REACH. WILL CONT TO MONITOR.
[2018-07-15] VITALS (7 sets, daily range): BP systolic 92–136; BP diastolic 60–75
--- NOTE | 2018-07-15 03:56 | NUR ---
PT C/O 8 BACK PAIN, PRN NORCO GIVEN ORDERED. BREATHING IS EVEN AND UNLABORED, NO RESP DISTRESS NOTED. CHEST TUBE IN PLACE TO WALL SUCTION, TIDALING NOTED. NO ACUTE DISTRESS NOTED. CALL LIGHT WITHIN REACH. GUARDS AT BEDSIDE. WILL CONT TO MONITOR.
--- NOTE | 2018-07-15 06:24 | NUR ---
PT SLEPT WELL THROUGHOUT THE EVENING. BREATHING IS EVEN AND UNLABORED ON 2L NC, CHEST TUBE IN PLACE TO WALL SUCTIONS, DRSG CDI. WALL SUCTION TO BE DISCONTINUED AND CHEST TUBE TO BE DRAINED VIA GRAVITY AT 0800 AM TODAY, WILL ENDORSE TO AM NURSE. CHEST TUBE OUTPUT-400 ML SEROUSANGUINEOUS. CONDOM CATH IN PLACE. PT DENIES ANY PAIN AT THIS TIME. IVF INFUSING WELL, SITE WNL. NO ACUTE CHANGES ENCOUNTERED DURING SHIFT. ALL NEEDS MET. CALL LIGHT WITHIN REACH. GUARDS AT BEDSIDE. WILL ENDORSE CARE TO AM NURSE.
[2018-07-15 06:55] LABS: BASOPHIL % 0.7 % (0-2); PLATELET COUNT 199 x10^3mcL (130-400)
--- NOTE | 2018-07-15 07:20 | NUR ---
RECEIVED PT FROM HEALTHCARE RISK CONTROL CONSULTANT. STABLE. DENIES PAIN THIS TIME. CHEST TUBE TO GRAIVITY DRAINING SEROSANGINIOUS DRAINAGE. ATTACHED TO WALL SUCTION. SAFTEY PRECAUIONS ARE IN PLACE. WILL MONITOR.
[2018-07-15 07:30] LABS: CALCIUM 9.1 mg/dL (8.5-10.1); CARBON DIOXIDE 27.4 mmol/L (21-32); CHLORIDE SERUM 95 mmol/L (98-107); CREATININE SERUM 0.8 mg/dL (0.7-1.3); GFR1 > 60 mL/min; GLUCOSE SERUM 99 mg/dL (74-106); POTASSIUM SERUM 4.6 mmol/L (3.5-5.1); SODIUM SERUM 131 mmol/L (136-145)
--- NOTE | 2018-07-15 07:39 | NUR ---
PT IN NO ACUTE DISTRESS. CONTINUITY OF CARE ENDORSED TO MUNDO NATHAN. ALL QUESTIONS AND CONCERNS ADDRESSED.
--- NOTE | 2018-07-15 08:00 | NUR ---
CHEST TUBE ID OFF FROM WALL SUCTION NOW. PT IS STABLE.
--- NOTE | 2018-07-15 08:35 | NUR ---
SPOKE WITH KRYSTAL IN RADIOLOGY, SHE ASKED THAT WE HOLD THE PATIENTS PRADAXA DUE TO PATIENTS UPCOMING THORECENTISIS "TOMORROW OR THE NEXT". HELD PER REQUEST.
--- NOTE | 2018-07-15 09:35 | NUR ---
NEW ORDER TO SET CHEST TUBE WALL SUCTION AT 15. ORDER ACKNOWLEDGED AND CARRIED OUT.
--- NOTE | 2018-07-15 09:35 | NUR ---
NEW ORDER PER DR RODRIGUEZ TO SET CHEST TUBE SUCTION AT 15. ORDER ACKNOWLEDGED AND CARRIED OUT.
--- NOTE | 2018-07-15 09:40 | NUR ---
DR PETERSEN AT BEDSIDE TO SEE PATIENT AT THIS TIME. NOTIFIED PATIENT THAT HE WILL NOT BE GOING HOME TODAY, THORACENTISIS IS PENDING.
--- NOTE | 2018-07-15 11:00 | NUR ---
PT RESTING COMFORTABLY IN BED. NO DISTRESS NOTED. CHEST TUBE DRAINING SEROANGINIOUS DRAINAGE.SAFETY PRECAUTIONS IN PLACE. CALL LIGHT WITHIN REACH. WILL MONITOR
--- NOTE | 2018-07-15 11:40 | NUR ---
Follow-up Nutrition Assessment- 223T/B ALIZA BOWER MR Dx: Pneumothorax, hypotension Labs: (07/15) NA 131L, BUN 20.0H Meds: coreg, zosyn Diet: cardiac PO intake: (07/14) breakfast 100%, lunch/dinner: not documented Weights: (07/09) 65.5 kg Skin: ecchymosis BUE and neck, erythema to sacral Parish: 19 Edema: none Last BM: 07/13 Per H&P, pt is a 62 yo male h/o metastatic prostate CA, CHF cardiomyopathy pacer, pleural effusions [facility] resident. Presented to the ED with increased SOB throughout the day. This had been going on for days. Per Progress note (07/14): Insertion of a new chest tube on the right side under local anesthesia. RDN Visit (07/15): pt was busy with other health career development manager. Information was obtained from VENITA Gomez. She said that pt has good appetite and does not have any N/V/D/C at this time. RDN visit (07/12): Pt was alert and awake and said that he does not have N/V but has diarrhea. He has good appetite and consumed 100% of breakfast. He said that he has lactose intolerance and cannot consume milk or ice-cream, other form of dairy are fine. He also has peanut allergy. This information was forwarded to lab clerk Geri. Pt is an inmate and consumes 1 boost drink/day in senior living for his weight loss. Estimated Nutritional Needs Based on actual body weight 65.5 kg Energy: 6056-6452 kcal/d (30-35 kcal/kg- weight gain) Protein: 79-98 g/d (1.2-1.5 g/kg)-maintenance and preservation of lean body mass Fluid: 8117-3467 ml/d (1 ml/kcal-fluid balance) or per doctor Nutrition Diagnosis 1. Increased nutrient needs related to medical condition as evidenced by pneumonia. (ongoing) Intervention 1. Continue Cardiac diet. 2. Recommend Ensure Enlive/ daily. Monitor/Evaluate Previous goal: cont cardiac diet (met) Goal: PO intake at least 75% of estimated needs Monitor: PO intake, Labs, GI function F/U in 3-5 days as moderate risk
--- NOTE | 2018-07-15 11:40 | NUR ---
1. Continue Cardiac diet. 2. Recommend Ensure Enlive/ daily.
--- NOTE | 2018-07-15 13:00 | NUR ---
PT RESTING COMFORTABLY. CHEST TUBE INTACT AND DRAINING PROPERLY. SAFETY PRECAUTIONS IN PLACE. WILL MONITOR
--- NOTE | 2018-07-15 17:00 | NUR ---
CHEST TUBE DRAIN CANISTER CHANGED AND SPECIMEN FOR PLEURAL FLUID COLLECTED PER FOR CYTOLOGY . PT DENIES PAIN. COOPERATED WELL. PLEURAL FLUID DRAINING TO CHEST TUBE WITH SEROSANGINIOUS DRAINAGE. PT RESTING IN BED COMFORTABLY.
--- NOTE | 2018-07-15 18:48 | NUR ---
PATIENT RESTING COMFORTABLY IN BED. DENIES ANY PAIN OR RESPIRATORY DISTRESS AT THIS TIME. PT STABLE. TOLERATED ALL CARES WELL. CHEST TUBE INTACT AND DRAINING SEROANGINIOUS DRAINAGE. NS RUNNING AT 20ML/HR. IV INTACT AND PATENT. SAFETY PRECAUTIONS IN PLACE. CALL LIGHT WITHIN REACH. WILL REPORT OFF TO NEXT SHIFT.
--- NOTE | 2018-07-15 20:00 | NUR ---
PT RECIEVED AAO REG RESP WITH DIMINISHED TO ROBERT LOWER BASES,PT HAS A CHEST TUBE TO THE RT SIDE WITH TPO SUCTION DRIAN WITH TINGE BLOOD OUTPUT,PT ON TELE MONITOR PACED,NO CHEST PAIN AT THIS TIME,IV INFUSING WELL WITH THE SITE PATENT AND INTACT,BED IN THE LOW POSITION AND LOCKED,KEPT CLEAN AND DRY TO TOUCH,PT HAS A CONDOM CATH WITH DESTINI URINE OUTPUT,ECCHYMOSIS TO THE BUE NECK AND ERYHTMIA TO THE SCROTUM,BED IN THE LOW POSITION AND LOCKED,CALL LIGHT EASY REACHED AND WILL CONTINUE TO MONITOR.
--- NOTE | 2018-07-15 22:00 | NUR ---
NEW CONDOM CATH WAS PUT ON THE PATIENT,WILL CONTINUE TO MONITOR.
--- NOTE | 2018-07-16 01:45 | NUR ---
PT RESTING AT THIS TIME,AND WILL CONTINUE TO MONITOR.
[2018-07-16 05:43] VITALS: BP 97/63
[2018-07-16 07:03] LABS: BASOPHIL % 0.8 % (0-2); PLATELET COUNT 211 x10^3mcL (130-400)
[2018-07-16 07:05] LABS: CALCIUM 9.3 mg/dL (8.5-10.1); CARBON DIOXIDE 30.3 mmol/L (21-32); CHLORIDE SERUM 96 mmol/L (98-107); GFR1 > 60 mL/min; GLUCOSE SERUM 108 mg/dL (74-106); SODIUM SERUM 131 mmol/L (136-145)
[2018-07-16 07:32] LABS: RED CELL DISTRIBUTION WIDTH 16.9 % (11.5-14.5)
--- NOTE | 2018-07-16 07:43 | NUR ---
PT RESTING AT THIS TIME,STILL WITH CHEST TUBE TO SUCTION AT 15 ML,REG TRESP NO SON DIMNISHED TO ROBERT LOWER BASES ON 2L N/C SAT 97%,HOB,IV INFUSIMG WELL WITH THE SITE PATENT AND INTACT,PT HAS THE CONDOM CATH,PT WITH ECCHYMOSIS TO THE BUE,ERYTHEMIA TO THE SCROTUM,KEPT CLEAN AND DRY TO TOUCH,ON TELE MONITOR AND IN AFIB PACED NO ECTOPY OR CHEST PAIN AT THIS TIME,CALL LIGHT EASY REACHED AND WILL CONRINUE TO MONITOR.
[2018-07-16 09:13] VITALS: BP 102/65
--- NOTE | 2018-07-16 11:03 | NUR ---
PT KEPT CLEAN AND DRY TO TOUCH V/S STABLE,CALL LIGHT EASY REACHED AND WILL CONTINUE TO MONITOR.
--- NOTE | 2018-07-16 11:40 | NUR ---
ASSUMED CARE OF PATIENT FROM ANTWAN NATHAN. PATIENT IS RESTING IN BED. CHEST TUBE IN PLACE CONNECTED TO SUCTION. NO DISTRESS NOTED. WILL CONTINUE TO MONITOR PATIENT AND MAINTAIN SAFETY.
[2018-07-16 12:57] VITALS: BP 103/62
--- NOTE | 2018-07-16 13:25 | NUR ---
RECEIVED PT FROM VENITA RODRIGUES. PT SEEN LYING IN BED, AAOX4. NO SOB NOTED, ON 2LPM/NC. LUNG SOUNDS DIMINISHED ON THE BASES AND RIGHT SIDE OF THE LUNG. W/ CHESTTUBE IN PLACE ON THE RIGHT SIDE DRAINING TO SUCTION, NOTED SEROSANGUINEOUS OUTPUT. DRESSING ON THE RIGHT CHEST IS CDI. ON TELE# 31, 100% PACED ON THE MONITOR. W/ ECCHYMOSIS ON BUE, NECK AND RIGHT CHEST. W/ ERYTHEMA ON THE SCROTAL AREA. IV SITE ON THE LFA GAUGE 22 IS PATENT AND INTACT. SIDE RAILS UPX2. CALL LIGHT ON REACH. WILL CONT TO MONITOR
--- NOTE | 2018-07-16 15:30 | NUR ---
PT HAS HIS EYES CLOSED, NO S/S OF PAIN AND SOB NOTED. STILL W/ RIGHT CHEST TUBE ON WALL SUCTION AT 15MMHG. WILL CONT TO MONITOR
[2018-07-16 18:02] VITALS: BP 101/55
--- NOTE | 2018-07-16 18:07 | NUR ---
PT AAOX4. NO C/O SOB AND PAIN AT THIS TIME. STILL W/ RIGHT SIDED CHEST TUBE ON WALL SUCTION AT 15MMHG, DRESSING CDI. W/ CONDOM CATHETER DRAINING W/ YELLOW COLORED URINE. IV SITE ON THE LFA PATENT AND INTACT. HOB KEPT ELEVATED AT 45 DEG. SIDE RAILS UPX2. CALL LIGHT ON REACH. NEEDS ARE ATTENDED. WILL CONT TO MONITOR
--- NOTE | 2018-07-16 19:20 | NUR ---
BEDSIDE REPORT GIVEN TO RICKY FOR CONTINUITY OF CARE
--- NOTE | 2018-07-16 20:09 | NUR ---
Awake and verbally responsive. No respiratory distress noted on 02 2lpm via n/c. Chest tube intact connected to wall suction @ 15mmHg. Denies pain at this time. Denies n/v. 100% paced rhythm. Condom cath intact draining yellow urine. Will cont.to monitor. Call light within reach.
[2018-07-16 21:43] VITALS: BP 96/58
--- NOTE | 2018-07-17 04:44 | NUR ---
Afebrile. No significant change in condition noted. Remained chest tube to low wall suction. No leaking. No SOB noted. Denies chest pain. Up in the commode. Activity tolerated well. Had HHN treatment given by RT. Pain controlled. In no apparent distress.
[2018-07-17 05:48] VITALS: BP 99/64
[2018-07-17 07:27] LABS: CALCIUM 8.6 mg/dL (8.5-10.1); CARBON DIOXIDE 31.3 mmol/L (21-32); CHLORIDE SERUM 97 mmol/L (98-107); GFR1 > 60 mL/min; GLUCOSE SERUM 103 mg/dL (74-106); POTASSIUM SERUM 5.2 mmol/L (3.5-5.1); SODIUM SERUM 129 mmol/L (136-145)
--- NOTE | 2018-07-17 07:39 | NUR ---
A+OX4, TELE 31, 100% PACED, PULSES MODERATE AND EQUAL ROBERT, NO EDEMA NOTED, LUNG SOUNDS DIMINISHED, HUMIDIFIED 2L NC, R CHEST TUBE TO WALL SUCTION 15 MMHG INTACT, DRESSING CDI, BOWEL SOUNDS ACTIVE, CONDOM CATH INTACT, GENERALIZED WEAKNESS, ABLE TO MOVE ALL EXTREMITIES, ECCHYMOSIS BUE, NECK AND R CHEST, IV IN LFA WITH NS@ 20 ML/HR, SITE WNL, NA 129, K 5.2, BUN 24.0.
[2018-07-17 08:08] LABS: BASOPHIL % 0.9 % (0-2); PLATELET COUNT 207 x10^3mcL (130-400)
[2018-07-17 08:11] LABS: RED CELL DISTRIBUTION WIDTH 16.9 % (11.5-14.5)
--- NOTE | 2018-07-17 09:47 | NUR ---
PT RESTING IN BED, NO RESPIRATORY DSITRESS NOTED, COMPLAINING OF PAIN, REQUESTING NORCO, NORCO PO GIVEN, GUARDS AT BEDSIDE. DR SHARIF AT BEDSIDE TO SPEAK TO PT. CALL LIGHT WITHIN REACH.
[2018-07-17 10:03] VITALS: BP 98/56
--- NOTE | 2018-07-17 11:57 | NUR ---
PT STATES CONDOM CATH CAME OFF. REPLACED CONDOM CATH AND SECURED TO PT SHAFT. ASSISTED PT TO SIT IN CHAIR. NO RESPRIATORY DSITRESS NOTED, CALL LIGHT WIHIN REACH.
--- NOTE | 2018-07-17 13:37 | NUR ---
PT STATES CONDOM CATH AGAIN CAME OFF. PT CONT TO REQUEST WE OBTAIN HIS CONDOM CATHS FROM [facility]. PLACED NEW CONDOM CATH ON PT AND SECURED TO SHAFT. PT COMPLAINING OF PAIN, REQUESTING NORCO, NORCO PO GIVEN, NO RESPRIATORY DSITRESS NOTED, CALL LIGHT WITHIN REACH, GAZENON AT BEDSIDE.
--- NOTE | 2018-07-17 14:24 | NUR ---
SPOKE TO [facility] AND [employer] RELATIONS CONSULTANT STATED THEY WILL SEND THE PT CONDOM CATHS BUT UNSURE OF TIME.
--- NOTE | 2018-07-17 14:32 | NUR ---
PT RESTING IN BED, NO RESPIRATORY DSITRESS NOTED, APPEARS TO BE SLEEPING, CALL LIGHT WITHIN REACH, GAURDS AT BEDSIDE.
[2018-07-17 14:38] VITALS: BP 94/54
--- NOTE | 2018-07-17 16:01 | NUR ---
PT STATES CONDOM CATH CAME OFF AGAIN. NEW CONDOM CATH PLACED AND SECURED TO PT SHAFT. NO RESPRIATORY DSITRESS NOTED, GAURDS AT BEDSIDE. CALL LIGHT WITHIN REACH.
--- NOTE | 2018-07-17 17:38 | NUR ---
CHEST TUBE CHAMBER/CONTAINER CHANGED AND REPLACED, DRESSING TO R CHEST CDI, PT COMPLAINING OF PAIN, NORCO PO GIVEN, NO RESPRIATORY DSITRESS NOTED. CHEST TUBE OUTPUT: 700 ML YELLOW DRAINAGE. MILADYS AT BEDSIDE.
[2018-07-17 17:58] VITALS: BP 100/64
--- NOTE | 2018-07-17 18:44 | NUR ---
PT RESTING IN BED, NO RESPIRATORY DSITRESS NOTED, STATES PAIN IS TOLERABLE AT THIST TIME, GAURDS AT BEDSIDE, CALL LIGHT WITHIN REACH.
--- NOTE | 2018-07-17 19:28 | NUR ---
ENDORSED CARE TO GIANCARLO NATHAN.
--- NOTE | 2018-07-17 19:41 | NUR ---
RECEIVED PT FROM DAY SHIFT RN. PT AAOX4 DENIES HEADACHE OR DIZZINESS. TELE #31 100% PACED. PT DENIES CHEST PAIN OR PRESSURE. DIMINISHED LUNG SOUNDS ON 2L/MIN NC WITH HUMIDIFIER. PT HAS A CHEST TUBE ON THE RIGHT SIDE OF CHEST, WITH SUCTION. GENERALIZED WEAKNESS NOTED. CONDOM CATHETER DRAINING YELLOW URINE. IV LFA PATENT, INFUSING WELL. NO SIGNS OF ACUTE DISTRESS NOTED. TWO GUARDS AT BEDSIDE. CALL BUTTON WITHIN REACH. WILL CONTINUE TO MONITOR.
[2018-07-17 21:04] VITALS: BP 95/57
--- NOTE | 2018-07-17 21:41 | NUR ---
PT REPORTED HAVING BACK PAIN 9/10, MEDICATED PER EMAR. WILL CONTINUE TO MONITOR.
--- NOTE | 2018-07-18 00:53 | NUR ---
PT RESTING, BREATHING EVEN AND UNLABORED WITH NO SIGNS OF DISTRESS NOTED. CHEST TUBE IN PLACE TO WALL SUCTION. PT ON NC 2L/MIN NC NO SOB NOTED. CALL BUTTON WITHIN REACH. TWO GUARDS AT BEDSIDE. WILL CONTINUE TO MONITOR.
[2018-07-18 05:44] VITALS: BP 117/66
--- NOTE | 2018-07-18 06:31 | NUR ---
PT SLEPT ON AND OFF THROUGHOUT THE NIGHT WITH NO SIGNS OF DISTRESS. NC 2L WITH HUMIDIFIER, NO SOB NOTED. CHEST TUBE IN PLACE TO WALL SUCTION. NO ACUTE DISTRESS NOTED. IV PATENT AND INFUSING WELL. PT REPORTED HAVING BACK PAIN THROUGHOUT THE NIGHT, MEDICATED PER EMAR WITH SOME RELIEF. IV PATENT AND INFUSING WELL. GUARDS AT BEDSIDE. SAFETY PRECAUTIONS IN PLACE. WILL CONTINUE TO MONITOR AND ENDORSE CARE TO DAY SHIFT RN.
[2018-07-18 07:01] LABS: PLATELET COUNT 211 x10^3mcL (130-400)
[2018-07-18 07:20] LABS: RED CELL DISTRIBUTION WIDTH 17.1 % (11.5-14.5)
[2018-07-18 07:26] LABS: CALCIUM 8.8 mg/dL (8.5-10.1); CHLORIDE SERUM 96 mmol/L (98-107); GFR1 > 60 mL/min; GLUCOSE SERUM 125 mg/dL (74-106); POTASSIUM SERUM 4.7 mmol/L (3.5-5.1); SODIUM SERUM 129 mmol/L (136-145)
--- NOTE | 2018-07-18 07:34 | NUR ---
PT RESTING, BREATHING EVEN AND UNLABORED WITH NO SIGNS OF DISTRESS NOTED. IV PATENT AND INFUSING WELL. NO SIGNS OF ACUTE DISTRESS NOTED. SAFETY PRECAUTIONS IN PLACE. CALL BUTTON WITHIN REACH. GUARDS AT BEDSIDE. ENDORSED CARE TO DAY SHIFT RN, ALL QUESTIONS ADDRESSED.
--- NOTE | 2018-07-18 07:57 | NUR ---
A+OX4, NO RESPIRATORY DISTRESS NOTED, TELE 31, 100% PACED, PULSES MODERATE AND EQUAL ROBERT, NO EDEMA NOTED, LUNG SOUNDS DIMINISHED, 2L NC, CHEST TUBE TO R CHEST CDI ATTACHED TO WALL SUCTION @ 15 MMHG, BOWEL SOUNDS ACTIVE, CONDOM CATH INTACT AND DRAINING YELLOW URINE, GENERALIZED WEAKNESS, DISCOLORATION BUE, NECK , AND R CHEST, CHEST TUBE DRESSING TO R CHEST CDI, IV IN LFA WITH NS @ 20 ML/HR, SITE WNL, RBC 3.23, H/H 9.2/28, NA 129, CL 96, BUN 23.0.
[2018-07-18 09:24] VITALS: BP 99/60
--- NOTE | 2018-07-18 09:25 | NUR ---
PT AGITATED, RUDE, COMPLAINING OF PAIN, REQUESTING NORCO, NORCO PO GIVEN, NO RESPIRATORY DSITRESS NOTED, CALL LIGHT WITHIN REACH, GAURDS AT BEDSIDE.
--- NOTE | 2018-07-18 12:16 | NUR ---
PT RESTING IN BED, NO RESPIRATORY DSITRESS NOTED NOTED, STATES PAIN IS TOLERABLE AT THIS TIME, GUARDS AT BEDSIDE, CALL LIGHT WITHIN REACH.
--- NOTE | 2018-07-18 12:29 | NUR ---
DR SHARIF TELEPHONE ORDERED TO CONT ZOSYN FOR 7 MORE DAYS.
[2018-07-18 12:35] VITALS: BP 95/60
--- NOTE | 2018-07-18 12:44 | NUR ---
1. Continue Cardiac diet. 2. Continue Ensure Enlive/ daily.
--- NOTE | 2018-07-18 12:44 | NUR ---
Follow-up Nutrition Assessment- 223T/B ALIZA BOWER MR Dx: Pneumothorax, hypotension Labs: (07/18) NA 129L, BUN 23.0H, BG 125H Meds: coreg, Lasix, zosyn Diet: cardiac PO intake: (07/18) breakfast 50%, (07/16) 60% dinner Weights: (07/09) 65.5 kg Skin: R chest tube dressing, discoloration to BUE Parish: 19 Edema: none Last BM: 07/18 Per H&P, pt is a 62 yo male h/o metastatic prostate CA, CHF cardiomyopathy pacer, pleural effusions [facility] resident. Presented to the ED with increased SOB throughout the day. This had been going on for days. Per Progress note (07/14): Insertion of a new chest tube on the right side under local anesthesia. RDN Visit (07/18): pt was alert and awake and said that he ate most of his breakfast this morning. Pt does not have any N/V but complains of diarrhea due to antibiotics. Pt has been drinking Ensure Enlive daily. RDN Visit (07/15): pt was busy with other health field care manager. Information was obtained from VENITA Gomez. She said that pt has good appetite and does not have any N/V/D/C at this time. RDN visit (07/12): Pt was alert and awake and said that he does not have N/V but has diarrhea. He has good appetite and consumed 100% of breakfast. He said that he has lactose intolerance and cannot consume milk or ice-cream, other form of dairy are fine. He also has peanut allergy. This information was forwarded to jose martin Barragan. Pt is an inmate and consumes 1 boost drink/day in alf for his weight loss. Estimated Nutritional Needs Based on actual body weight 65.5 kg Energy: 4116-4364 kcal/d (30-35 kcal/kg- weight gain) Protein: 79-98 g/d (1.2-1.5 g/kg)-maintenance and preservation of lean body mass Fluid: 1925-3233 ml/d (1 ml/kcal-fluid balance) or per doctor Nutrition Diagnosis 1. Increased nutrient needs related to medical condition as evidenced by pneumonia. (ongoing) Intervention 1. Continue Cardiac diet. 2. Continue Ensure Enlive/ daily. Monitor/Evaluate Previous goal: cont cardiac diet, ensure enlive /daily (met) Goal: PO intake at least 75% of estimated needs Monitor: PO intake, Labs, GI function F/U in 7 days as low risk 5/2
--- NOTE | 2018-07-18 13:20 | NUR ---
PT RESTING IN BED, NO RESPIRATORY DSITRESS NOTED, COMPLAINING OF PAIN, REQUESTING NORCO, NORCO PO GIVEN, CALL LIGHT WITHIN REACH, GAURDS AT BEDSIDE.
--- NOTE | 2018-07-18 13:25 | NUR ---
PT STATES CONDOM CATH CAME OFF. MILADYS BROUGHT CONDOM CATH FROM [facility]. PLACED NEW CONDOM CATH ON PT, ASSISTED PT TO SIT IN CHAIR. PT CONT TO BE RUDE AND DEMANDING. CALL LIGHT WITHIN REACH.
--- NOTE | 2018-07-18 16:23 | NUR ---
PT RESTING IN BED, APPEARS TO BE SLEEPING, NO RESPRIATORY DSITRESS NOTED, CALL LIGHT WITHIN REACH, MILADYS AT BEDSIDE.
--- NOTE | 2018-07-18 17:08 | NUR ---
PT RESTING IN BED, COMPLAINING OF PAIN, REQUESTING NORCO, NORCO PO GIVEN, NO RESPRIATORY DSITRESS NOTED, CALL LIGHT WITHIN REACH.
[2018-07-18 18:01] VITALS: BP 103/60
--- NOTE | 2018-07-18 18:49 | NUR ---
PT RESTING IN BED, NO RESPIRATORY DSITRESS NOTED, APPEARS TO BE SLEEPING, GAURDS AT BEDSIDE, CALL LIGHT WITHIN REACH.
--- NOTE | 2018-07-18 19:08 | NUR ---
ENDORSED CARE TO GIANCARLO NATHAN.
--- NOTE | 2018-07-18 19:42 | NUR ---
RECEIVED PT FROM DAY SHIFT RN. PT AAOX4 DENIES HEADACHE OR DIZZINESS. TELE #31 100% PACED WITH BBB HR 70. PT DENIES CHEST PAIN OR PRESSURE. DIMINISHED LUNG SOUNDS ON 2L/MIN NC WITH HUMIDIFIER. PT HAS A CHEST TUBE ON THE RIGHT SIDE OF CHEST, WITH WALL SUCTION. GENERALIZED WEAKNESS NOTED. CONDOM CATHETER DRAINING YELLOW URINE. IV LFA PATENT, INFUSING WELL. NO SIGNS OF ACUTE DISTRESS NOTED. TWO GUARDS AT BEDSIDE. CALL BUTTON WITHIN REACH. WILL CONTINUE TO MONITOR.
--- NOTE | 2018-07-18 21:20 | NUR ---
PT REPORTED HAVING BACK PAIN 11/02. MEDICATED PER EMAR. WILL MONITOR.
[2018-07-18 21:23] VITALS: BP 97/61
--- NOTE | 2018-07-19 00:15 | NUR ---
PT RESTING, BREATHING EVEN AND UNLABORED, NC IN PLACE NO SOB NOTED. CHEST TUBE IN PLACE TO WALL SUCTIONED. IV PATENT, INFUSING WELL. SAFETY PRECAUTIONS IN PLACE. GUARDS AT BEDSIDE. WILL CONTINUE TO MONITOR.
--- NOTE | 2018-07-19 01:32 | NUR ---
PT REPORTED BACK PAIN, MEDICATED PER EMAR. WILL MONITOR.
--- NOTE | 2018-07-19 02:00 | NUR ---
PT RESTING, BREATHING EVEN AND UNLABORED, NC IN PLACE. CHEST TUBE IN PLACE. IV PATENT, INFUSING WELL. CALL BUTTON WIHTIN REACH. GUARDS AT BEDSIDE. WILL MONITOR.
--- NOTE | 2018-07-19 05:56 | NUR ---
PT REPORTED HAVING BACK PAIN, REQUESTING PAIN MEDICATION. MEDICATED PER EMAR. WILL MONITOR.
[2018-07-19 06:10] VITALS: BP 96/63
[2018-07-19 06:56] LABS: BASOPHIL % 0.8 % (0-2); PLATELET COUNT 196 x10^3mcL (130-400)
--- NOTE | 2018-07-19 07:09 | NUR ---
RECEIVED PATIENT RESTING COMFORTABLY IN BED WITH CIM OFFICERS AT BEDSIDE. IV TO LFA IS PATENT AND INFUSING NS @ 20 ML/HR. NO REDNESS OR PAIN. TELE # [address] PT DENIES CHEST PAIN. CHEST TUBE TO RT CHEST WITH SUCTION @ 15MMHG. PT ON O2 2L NC. NO C/O SOB AND NO DISTRESS NOTED. ALL QUESTIONS AND CONCERNS ADDRESSED.
[2018-07-19 07:17] LABS: CARBON DIOXIDE 31.4 mmol/L (21-32); CHLORIDE SERUM 95 mmol/L (98-107); CREATININE SERUM 0.9 mg/dL (0.7-1.3); GFR1 > 60 mL/min; GLUCOSE SERUM 103 mg/dL (74-106); POTASSIUM SERUM 5.5 mmol/L (3.5-5.1); SODIUM SERUM 131 mmol/L (136-145)
--- NOTE | 2018-07-19 07:35 | NUR ---
PT AWAKE NO SIGNS OF DISTRESS NOTED. NC IN PLACE NO SOB NOTED. CHEST TUBE IN PLACE TO WALL SUCTION. IV PATENT AND INFUSING WELL. SAFETY PRECAUTIONS IN PLACE. GUARDS AT BEDSIDE. ENDORSED CARE TO DAY SHIFT RN, ALL QUESTIONS ADDRESSED.
--- NOTE | 2018-07-19 08:09 | NUR ---
SPOKE WITH DR SHARIF TO NOTIFY OF NA + 131, K+ 5.[address] SHARIF ORDERED C.DIFF AND KAYAEXALATE.
--- NOTE | 2018-07-19 09:22 | NUR ---
DR SHARIF IN TO SEE AND ASSESS PATIENT.
[2018-07-19 09:39] VITALS: BP 111/59
--- NOTE | 2018-07-19 11:48 | NUR ---
PT C/O BEING COLD. ORAL TEMP TAKEN 97.6 WARM BLANKET APPLIED.
--- NOTE | 2018-07-19 12:42 | NUR ---
IN TO ADMINISTER VELTASSA PER MD ORDER. PT REFUSED AND WOULD LIKE ME TO RETURN IN 10 MINUTES.
[2018-07-19 12:48] VITALS: BP 95/69
[2018-07-19 18:01] VITALS: BP 96/56
--- NOTE | 2018-07-19 19:30 | NUR ---
RECEIVED PT RESTING IN BED, NO ACUTE DISTRESS NOTED. CIM PATIENT, 2 CORRECTIONAL OFFICERS AT BEDSIDE. PT AOX4, DENIES CASEY/DIZZINESS. TELE #31 100% PACED, PT WITH CARDIOMYOPATHY PACER IN PLACE DENIES CP. PULSES PALPABLE BILAT, DENIES NUMBNESS/TINGLING IN FEET. PT SHACKLED TO RT ANKLE, SKIN INTACT, CAP REFILL < 3 SEC. DENIES PAIN IN BLE. RESP EVEN AND UNLABORED WITH CHEST TUBE, CONNECTED TO WALL SUCTION 15CC. CHEST TUBE APPLIANCE SECURED TO RT SIDE OF BED, ON FLOOR. SECRETIONS NOTED TO BE SEROSANGANEOUS. WILL CONTINUE TO MONITOR OUTPUT. ABD SOFT, ROUND, DENIES ABD PAIN. PT REPORTS RECENT DIARRHEA, YET NEEDS HIS IMMODIUM D/T HIS METASTATIC CA. WILL MEDICATE REQUESTED. PER DAYSHIFT NURSE, PT HAD REPORTS DIARRHEA AFTER ADMISSION, DR. KOLE Penny,. DIFF SAMPLE, WILL OBTAIN WHEN POSSIBLE. PT HAS CONDOM CATH DRAINING YELLOW URINE TO GRAVITY, DENIESS DYSURIA. GENERALIZED WEAKNESS, ABD TO TRANSFER TO BSC WITH ASSISTANCE. ECCHYMOSIS TO BUE/NECK GIRISH. DENIES PAIN. PT SKIN INTACT NEAR CHEST TUBE SITE, DSG CDI. WILL CONTINUE TO MONITOR CLOSELY. PT REPORTS CHRONIC BACK PAIN, WILL MEDICATE PRN. IV SITE TO LFA NS @ 20ML/HR. NO REDNESS, SWELLING OR PAIN NOTED. ALL COMFORT AND SAFETY MEASURES PROVIDED FOR, CALL LIGHT WITHIN REACH, BED IN LOWEST POSITION, WILL CONTINUE TO MONITOR.
--- NOTE | 2018-07-19 19:36 | NUR ---
REPORT GIVENT TO JOANN NATHAN. PT RESTING COMFORTABLY IN BED WITH CIM OFFICERS AT BEDSIDE. IV IS PATENT AND INFUSING NS @ 20 ML/HR. NO REDNESS OR PAIN. TELE MONITOR IN PLACE PT DENIES CHEST PAIN. PT ON O2 2L NC. NO C/O SOB AND NO DISTRESS NOTED. CHEST TUBE TO RT CHEST DRAINING LIGHT YELLOW FLUID. CONDOM CATH IN PALCE DRAINING YELLOW URINE. ALL QUESTIONS AND CONCERNS ADDRESSED. ALL CARES ENDORSED.
[2018-07-19 20:39] VITALS: BP 100/58
--- NOTE | 2018-07-19 22:30 | NUR ---
PERFORMED ROUTINE CHECK ON PT, PT SITTING UP IN BED DRINKING ENSURE. PT REPORTS HE IS OK AT THIS TIME, DENIES THE NEED FOR PAIN MEDS. CHEST TUBE REMAINS IN PLACE TO WALL SUCTION. DSG REMAINS CDI. BED IN LOWEST POSITION, CALL LIGHT WITHIN REACH, WILL CONTINUE TO MONITOR.
--- NOTE | 2018-07-20 | NUR ---
UPON ASSESSMENT, PT RESTING WITH EYES CLOSED, NO S/S OF SOB/CO NOTED. CHEST TUBE REMAINS IN PLACE TO RT CHEST, CONNECTED TO WALL SUCTION, 15CC. ALL COMFORT AND SAFETY MEASURES PROVIDED FOR, CALL LIGHT WITHIN REACH, BED IN LOWEST POSITION, WILL CONTINUE TO MONITOR.
--- NOTE | 2018-07-20 05:00 | NUR ---
PT RESTED IN INTERVALS DURING SHIFT, NO ACUTE CHANGES OCCURRING OVERNIGHT. PT MEDICATED X2 WITH NORCO FOR CHRONIC BACK PAIN, PT REQUESTING PAIN MEDICATION AT THIS TIME, WILL MEDICATE PER ORDER. PT CHEST TUBE DRAINED SEROSANGANEOUS FLUID W/ 300ML OUT. PT DENIES SOB AT THIS TIME. ZOSYN D/C LAST NIGHT AND NO NEW CHEST X RAY ORDER, WILL PHONE DR SHARIF THIS AM ABOUT POSSIBLE NEED FOR CXR. IV SITE REMAINS PATENT TO LFA, NS @ 20ML.HR. NO REDNESS, SWELLING OR PAIN NOTED. ALL COMFORT AND SAFETY MEASURES PROVIDED FOR, CALL LIGHT WITHIN REACH, BED IN LOWEST POSITION, WILL CONTINUE TO MONITOR.
[2018-07-20 06:12] VITALS: BP 99/56
[2018-07-20 06:19] LABS: BASOPHIL % 1.5 % (0-2); PLATELET COUNT 192 x10^3mcL (130-400)
[2018-07-20 06:26] LABS: RED CELL DISTRIBUTION WIDTH 17.1 % (11.5-14.5)
[2018-07-20 06:55] LABS: ALBUMIN 2.4 g/dL (3.4-5.0); ALKALINE PHOSPHATASE 102 U/L (46-116); ALT/SGPT 18 U/L (16-63); AST/SGOT 26 U/L (15-37); BILIRUBIN TOTAL 0.4 mg/dL (0.20-1.00); CALCIUM 8.9 mg/dL (8.5-10.1); CARBON DIOXIDE 29.4 mmol/L (21-32); CHLORIDE SERUM 95 mmol/L (98-107); GFR1 > 60 mL/min; GLUCOSE SERUM 104 mg/dL (74-106); POTASSIUM SERUM 5.3 mmol/L (3.5-5.1); SODIUM SERUM 132 mmol/L (136-145); TOTAL PROTEIN, SERUM 6.9 g/dL (6.4-8.2)
--- NOTE | 2018-07-20 07:00 | NUR ---
CHANGED OUT PT CHEST TUBE PLEURAL SEAL APPLIANCE, PT TOLERATED PROCEDURE WELL. ALL COMFORT AND SAFETY MEASURES PROVIDED FOR, CALL LIGHT WITHIN REACH, BED IN LOWEST POSITION, WILL ENDORSE ALL CARE.
--- NOTE | 2018-07-20 07:14 | NUR ---
RECEIVED REPORT FROM JOANN NATHAN. PT RESTING COMFORTABLY IN BED WITH CIM OFFICERS AT BEDSIDE. IV TO LFA IS PATENT AND INFUSING NS @ 20 ML/HR. NO REDNESS OR PAIN. TELE # [address] PT DENIES CHEST PAIN. PT ON O2 2L NC NO C/O SOB AND NO DISTRESS NOTED. ALL QUESTIONS AND CONCERNS ADDRESSED.
--- NOTE | 2018-07-20 07:21 | NUR ---
ENDORSED ALL CARE TO DAYSHIFT NURSE, ALL QUESTIONS AND CONCERNS ADDRESSED, CALL LIGHT WITHIN REACH, BED IN LOWEST POSITION, ALL COMFORT AND SAFETY MEASURES PROVIDED FOR.
[2018-07-20 08:55] VITALS: BP 99/56
--- NOTE | 2018-07-20 09:44 | NUR ---
SPOKE WITH DR SHARIF TO INFORM OF K+ 5.3 VELTASSA ORDERED. INFORMED [address] SHARIF OF PENILE REDNESS AND RESIDUE. DR SHARIF OK TO INSERT HUSTON INSTEAD OF CONDOM CATH PER PT REQUEST.
[2018-07-20 10:02] VITALS: BP 99/63
--- NOTE | 2018-07-20 10:11 | NUR ---
ATTEMPTED TO INSERT HUSTON WITH NO SUCCESS. PROSTATE HISTORY CAUSED TOO MUCH DAMAGE AND PT WAS IN PAIN. PT WAS LEFT WOTH URINAL AND HYDROGUARD APPLIED TO GROIN AREA.
[2018-07-20 12:59] VITALS: BP 96/58
--- NOTE | 2018-07-20 15:15 | NUR ---
IN TO SEE PATIENT AND ADMINISTER PAIN MEDICATION (SEE eMAR). PT RESTING IN BED WITH CIM OFFICERS AT BEDSIDE. ALL OTHER NEEDS MET.
[2018-07-20 17:13] VITALS: BP 112/63
--- NOTE | 2018-07-20 19:25 | NUR ---
RECEIVED PT RESTING IN BED, AOX4, DENIES CASEY/DIZZINESS. TELE #31, 100% PACED. PT WITH CARDIOMYOPATHY PACER IN PLACE, HR 70, DENIES CP. PULSES PALPABLE BILAT, DENIES NUMBNESS/TINGLING IN FEET. RESP EVEN AND UNLABORED, PT S/P CHEST TUBE INSERTION TO RT CHEST CONNECTED TO WALL SUCTION 15CC. SKIN FREE OF REDNESS, DSG CDI. RESP DIM BILAT, R>L. DENIES SOB. ABD SOFT, ROUND, REPORTING DIARRHWA IN DAYSHIFT, PT REPORTS HIS METASTATIC CA REQUIRES TO CONTINUE IMMODIUM SINCE HE HAS CHRONIC CONSTIPATION. PT WITH CONDOM CATH DRAINING YELLOW URINE TO GRAVITY, REPORTING INTERMITTENT BURNING. PT S/P FAILED ATTEMPTED AT HUSTON INSERTION IN DAYSHIFT D/T POSSIBLE PROSTATE ISSUE. WILL CONTINUE WITH CONDOM CATH. GENERALIZED WEAKNESS. DISCOLORATION TO BUE, GIRISH. DENIES PAIN. IV SITE TO LFA, NS @ 20ML/HR. NO REDNESS, SWELLING OR PAIN NOTED. ALL COMFORT AND SAFETY MEASURES PROVIDED FOR, CALL LIGHT WITHIN REACH, BED IN LOWEST POSITION, WILL CONTINUE TO MONITOR.
--- NOTE | 2018-07-20 19:44 | NUR ---
REPORT GIVEN TO JOANN NATHAN PT RESTING COMFORTABLY IN BED WITH CIM OFFICERS AT BEDSIDE. ALL NEEDS MET. ALL QUESTIONS AND CONCERNS ADDRESSED. ALL CARES ENDORSED.
[2018-07-20 20:45] VITALS: BP 98/59
--- NOTE | 2018-07-20 23:50 | NUR ---
ESCORTED PT DOWN TO CT SCAN FOR CT CHEST W/O IV CONTRAST. ENSURED CHEST TUBE APPLIANCE REMAINS BELOW INSERTION SITE ENTIRE TIME. PT TOLERATED TRANSFER WELL. GUARDS REMAIN BY BEDSIDE TO ENSURE SAFETY.
--- NOTE | 2018-07-21 00:15 | NUR ---
PT RETURNED BACK TO BED FROM CT SCAN, PT TOLERATED WELL. NO ACUTE DISTRESS NOTED. RETURNED PT BACK TO WALL SUCTION 15CC, PT DENIES SOB. PT REQUESTING PAIN MEDICATION, WILL MEDICATE PER ORDER. ALL COMFORT AND SAFETY MEASURES PROVIDED FOR, CALL LIGHT WITHIN REACH, BED IN LOWEST POSITION, WILL CONTINUE TO MONITOR.
--- NOTE | 2018-07-21 05:10 | NUR ---
PT RESTED IN INTERVALS DURING SHIFT, NO ACUTE CHANGES OCCURRING OVERNIGHT. PT REMAINS WITH CHEST TUBE TO RT CHEST ON WALL SUCTION 15CC, PT REMAINS ON 2L HUM O2. DENIES SOB. PT WITH CONDOM CATH DRAINING YELLOW URINE, DENIES DYSURIA. PT MEDICATED X3 WITH NORCO FOR CHEST TUBE SITE PAIN AND CHRONIC BACK PAIN. IV SITE REMAINS PATENT TO LFA, NS @20ML/HR. NO REDNESS, SWELLING OR PAIN NOTED. ALL COMFORT AND SAFETY MEASURES PROVIDED FOR, CALL LIGHT WITHIN REACH, BED IN LOWEST POSITION, WILL CONTINUE TO MONITOR.
[2018-07-21 05:33] VITALS: BP 97/63
[2018-07-21 06:17] LABS: PLATELET COUNT 199 x10^3mcL (130-400); RED CELL DISTRIBUTION WIDTH 16.8 % (11.5-14.5)
[2018-07-21 06:56] LABS: ALKALINE PHOSPHATASE 101 U/L (46-116); ALT/SGPT 19 U/L (16-63); AST/SGOT 27 U/L (15-37); BILIRUBIN TOTAL 0.4 mg/dL (0.20-1.00); CARBON DIOXIDE 33.9 mmol/L (21-32); CHLORIDE SERUM 94 mmol/L (98-107); CREATININE SERUM 0.9 mg/dL (0.7-1.3); GFR1 > 60 mL/min; GLUCOSE SERUM 105 mg/dL (74-106); SODIUM SERUM 131 mmol/L (136-145); TOTAL PROTEIN, SERUM 7.1 g/dL (6.4-8.2)
--- NOTE | 2018-07-21 07:05 | NUR ---
RECEIVED BEDSIDE REPORT FROM HOTEL ASSOCIATE NURSE AT THIS TIME. PATIENT RESTING COMFORTABLY IN BED. NO APPARENT DISTRESS OR DISCOMFORT NOTED. BREATHING EVEN AND UNLABORED. 2L NC IN PLACE AND PATIENT TOLERATING WELL. CHEST TUBE IN PLACE CONNECTED TO WALL SUCTION. NO RESPIRATORY DISTRESS NOTED. PATIENT DENIES CHEST PAIN AT THIS TIME. TELE 31 100% PACED. IV PATENT AND INTACT. ALL QUESTIONS AND CONCERNS ADDRESSED. ALL NEEDS ATTENDED TO. WILL CONTINUE TO MONITOR
[2018-07-21 07:21] LABS: ALBUMIN 2.5 g/dL (3.4-5.0); POTASSIUM SERUM 5.6 mmol/L (3.5-5.1)
--- NOTE | 2018-07-21 07:36 | NUR ---
ENDORSED ALL CARE TO DAYSHIFT NURSE, NO ACUTE DISTRESS NOTED. ALL QUESTIONS AND CONCERNS ADDRESSED, CALL LIGHT WITHIN REACH, BED IN LOWEST POSITION.
--- NOTE | 2018-07-21 08:39 | NUR ---
PATIENT C/O BACK PAIN AT THIS TIME. PATIENT MEDICATED WITH PRN NORCO AT THIS TIME. PATIENT TOLERATED WELL. NO ADVERSE EFFECTS NOTED. ALL NEEDS ATTENDED TO. WILL CONTINUE TO MONITOR
--- NOTE | 2018-07-21 09:17 | NUR ---
MORNING MEDICATIONS ADMINISTERED. PATIENT TOLERATED WELL. NO ADVERSE EFFECTS NOTED. CONDOM CATHETER CHANGED AT THIS TIME. ALL NEEDS ATTENDED TO. WILL CONTINUE TO MONITOR
--- NOTE | 2018-07-21 09:21 | NUR ---
LEFT A MESSAGE FOR BOTH DR SHARIF AND DR VALDIVIA REGARDING PATIENT POTASSIUM OF 5.6. NO NEW ORDERS SEEN. WILL PROCEED ORDERED. WILL CONTINUE TO MONITOR
[2018-07-21 09:48] VITALS: BP 100/55
--- NOTE | 2018-07-21 11:47 | NUR ---
SPOKE TO DR VALDIVIA AT THIS TIME REGARDING PATIENT POTASSIUM OF 5.6. PER DR VALDIVIA, TELEPHONE ORDER FOR ONEIL UNGER ONE TIME ORDER. TELEPHONE ORDER NOTED AND FOLLOWED THROUGH. ALL NEEDS ATTENDED TO. WILL CONTINUE TO MONITOR
[2018-07-21 12:33] VITALS: BP 93/57
--- NOTE | 2018-07-21 17:25 | NUR ---
PATIENT C/O BACK PAIN AND GENERALIZED BODY PAIN. PATIENT MEDICATED WITH PRN NORCO. NO ADVERSE EFFECTS NOTED. NO APPARENT DISTRESS OR DISCOMFORT NOTED. ALL NEEDS ATTENDED TO. WILL CONTINUE TO MONITOR
[2018-07-21 18:26] VITALS: BP 95/57
--- NOTE | 2018-07-21 18:50 | NUR ---
PATIENT RESTING COMFORTABLY IN BED AT THIS TIME. NO APPARENT DISTRESS OR DISCOMFORT NOTED. IV PATENT AND INTACT. 2L NC IN PLACE AND PATIENT TOLERATING WELL. CHEST TUBE IN PLACE AND DRAINING TO GRAVITY AND MARKED OUTPUT. CONDOM CATHETER IN PLACE AND DRAINING TO GRAVITY. ALL QUESTIONS AND CONCERNS ADDRESSED. ALL NEEDS ATTENDED TO. WILL ENDORSE ALL CARE TO BUSINESS QUALITY ASSURANCE ANALYST NURSE
--- NOTE | 2018-07-21 19:35 | NUR ---
RECEIVED PT RESTING IN BED, AOX4, DENIES CASEY/DIZZINESS. TELE #31, 100% PACED. PT WITH CARDIOMYOPATHY PACER IN PLACE, HR 70, DENIES CP. PULSES PALPABLE BILAT, DENIES NUMBNESS/TINGLING IN FEET. RESP EVEN AND UNLABORED, PT WITH CHEST TUBE TO RT CHEST CONNECTED TO WALL SUCTION 15CC. SKIN FREE OF REDNESS, DSG CDI. RESP DIM BILAT, R>L. DENIES SOB. ABD SOFT, ROUND, REPORTING DIARRHEA IN DAYSHIFT, DENIES ABD PAIN. PT WITH CONDOM CATH DRAINING YELLOW URINE TO GRAVITY, REPORTING INTERMITTENT BURNING. WILL CONTINUE WITH CONDOM CATH. GENERALIZED WEAKNESS. DISCOLORATION TO BUE, GRISTMILL OPERATOR. DENIES PAIN. IV SITE TO LFA, NS @ 20ML/HR. NO REDNESS, SWELLING OR PAIN NOTED. ALL COMFORT AND SAFETY MEASURES PROVIDED FOR, CALL LIGHT WITHIN REACH, BED IN LOWEST POSITION, WILL CONTINUE TO MONITOR.
[2018-07-21 21:44] VITALS: BP 98/52
--- NOTE | 2018-07-21 22:30 | NUR ---
UPON ASSESSMENT OF PT, PT SITTING UP IN BED WATCHING TV. PT REQUESTING TO HAVE THE DSG TO HIS SACRAL AREA REPLACED D/T SOILED. GATHERED MATERIALS AND CHANGED DSG, PT HAS BLANCHABLE REDNESS TO SACRUM, APPLIED Z GUARD AND REPLACED OPTIFORM. PT TOLERATED DSG CHANGE WELL. PT REQUESTING TO HAVE HIS CONDOM CATH CHANGED, PT ABLE TO PERFORM CHANGE OF CONDOM CATH FOR SELF WITH MINIMAL ASSISTANCE. ALL COMFORT AND SAFETY MEASURES PROVIDED FOR, CALL LIGHT WITHIN REACH, BED IN LOWEST POSITION, WILL CONTINUE TO MONITOR.
--- NOTE | 2018-07-22 05:05 | NUR ---
PT RESTED IN INTERVALS DURING SHIFT, NO ACUTE CHANGES OCCURRING OVERNIGHT. PT REMAINS WITH CHEST TUBE IN PLACE TO RT CHEST, CONTINUES TO DRAIN SEROSANGANEOUS FLUID. CHEST TUBE CONNECTED TO WALL SUCTION 15CC. PT ON 2L HUM O2, DENIES SOB. PT REPORTS EXERTION SOB WHEN USING BSC. PT CONTINUES WITH CONDOM CATH DRAINING YELLOW URINE, DENIES DYSURIA. IV SITE TO LFA REMAINS PATENT TO LFA, NS @ 20ML/HR, NO REDNESS, SWELLING OR PAIN NOTED. PT CALM AND COOPERATIVE WITH CARE AT THIS TIME, DR BACON IN TO SEE PT LAST NIGHT AND UPDATED WITH THE PLAN OF CARE (PER DR BACON, WILL CONTINUE TO MONITOR PNEUMOTHORAX AND ONCE IT RESOLVES, WILL REMOVED CHEST TUBE. DR ALSO RECOMMENDED PROCEDURE TO HELP WITH THE FLUID BUILD UP). PT EAGER TO GET CHEST TUBE OUT. ALL COMFORT AND SAFETY MEASURES PROVIDED FOR, CALL LIGHT WITHIN REACH, BED IN LOWEST POSITION, WILL CONTINUE TO MONITOR.
[2018-07-22 05:44] VITALS: BP 102/63
[2018-07-22 06:13] LABS: ALKALINE PHOSPHATASE 116 U/L (46-116); ALT/SGPT 19 U/L (16-63); AST/SGOT 26 U/L (15-37); BILIRUBIN TOTAL 0.3 mg/dL (0.20-1.00); CARBON DIOXIDE 34.3 mmol/L (21-32); CHLORIDE SERUM 97 mmol/L (98-107); CREATININE SERUM 0.9 mg/dL (0.7-1.3); GFR1 > 60 mL/min; GLUCOSE SERUM 111 mg/dL (74-106); PHOSPHOROUS 2.6 mg/dL (2.5-4.9); POTASSIUM SERUM 5.3 mmol/L (3.5-5.1); SODIUM SERUM 133 mmol/L (136-145); TOTAL PROTEIN, SERUM 6.8 g/dL (6.4-8.2)
[2018-07-22 06:53] LABS: ALBUMIN 2.4 g/dL (3.4-5.0)
--- NOTE | 2018-07-22 07:20 | NUR ---
RECEIVED PT FROM CLIENT RELATIONS REPRESENTATIVE RN. Shaneka/ABDOULAYE. TELE#31. DENIES CHEST PAIN/PRESSURE. RESPIRATIONS EQUAL AND LABORED ON 1L NC. PT C/O SOB WHEN MOVING, INCREASED NC TO 2L. CHEST TUBE IN PLACE TO LT SIDE, DRESSING CDI, DRAINING TO WALL SUCTION, CLAMPS AND DRESSING AVAILABLE AT BEDSIDE. IV TO LFA PATENT AND INFUSING. NO REDNESS OR SWELLING NOTED. PT DENIES ANY PAIN AT THIS TIME. WILL CONTINUE TO MONITOR. CALL LIGHT IN REACH. BED IN LOWEST POSITION.
--- NOTE | 2018-07-22 07:47 | NUR ---
ENDORSED ALL CARE TO DAYSHIFT NURSE, NO ACUTE DISTRESS NOTED. ALL QUESTIONS AND CONCERNS ADDRESSED. ALL COMFORT AND SAFETY MEASURES PROVIDED FOR, CALL LIGHT WITHIN REACH, BED IN LOWEST POSITION.
--- NOTE | 2018-07-22 08:21 | NUR ---
SPOKE WITH DR. SHARIF REGARDING LAST CHEST X-RAY ON 07/[address] OF CHEST ON 07/20. PER DR. SHARIF ORDER CHEST X-RAY FOR TODAY. CONFIRMED ORDER TORB.
[2018-07-22 09:36] VITALS: BP 105/68
--- NOTE | 2018-07-22 09:48 | NUR ---
PT SITTING UP IN BED RESTING. DR. SHARIF AT BEDSIDE INFORMING PT PLAN IS TO TRANSFER PT TO [facility] FOR POSSIBLE THORACIC SURGERY. PT VERBALIZED UNDERSTANDING. ASSISTED TO BEDSIDE COMMODE. TOLERATED WELL. GIVEN PO MEDS. TOLERATED WELL. IV PATENT AND INFUSING. NO REDNESS OR SWELLING NOTED. PT C/O 9/10 PAIN TO LOWER BACK. MEDICATED PER EMAR. APPLIED NEW OPTIFOAM DRESSING TO SACCRALCOCCYX AREA. CHEST TUBE DRAINING TO WALL SUCTION, DRESSING TO RT CHEST CDI. WILL CONTINUE TO MONITOR. CALL LIGHT IN REACH. BED IN LOWEST POSITION.
--- NOTE | 2018-07-22 10:33 | NUR ---
X-RAY MATTRESS STRIPPER AT BEDSIDE FOR CHEST X-RAY.
--- NOTE | 2018-07-22 12:00 | NUR ---
PT SITTING UP IN BED RESTING. NO ACUTE RESP DISTRESS NOTED. PT C/O NAUSEA. MEDICATED PER EMAR. TOLERATED WELL. WILL CONTINUE TO MONITOR. CALL LIGHT IN REACH. BED IN LOWEST POSITION.
--- NOTE | 2018-07-22 12:45 | NUR ---
PT REPOSITIONED SITTING UP IN CHAIR AT BEDSIDE. CHEST TUBE TO RT SIDE INTACT, DRESSING CDI. NO DRAINAGED NOTED. SET UP TO WALL SUCTION. NO ACUTE RESP DISTRESS NOTED. IV PATENT AND INFUSING. WILL CONTINUE TO MONITOR. CALL LIGHT IN REACH. BED IN LOWEST POSITION.
--- NOTE | 2018-07-22 13:17 | NUR ---
PT ASKING TO BE PUT BACK SITTING UP IN BED. NO ACUTE RESP DISTRESS NOTED ON 2L NC. GIVEN PO MEDS. TOLERATED WELL. IV PATENT AND INFUSING. NO REDNESS OR SWELLING NOTED. WILL CONTINUE TO MONITOR. CALL LIGHT IN REACH. BED IN LOWEST POSITION.
[2018-07-22 13:37] VITALS: BP 101/56
--- NOTE | 2018-07-22 14:00 | NUR ---
PT SITTING UP IN BED. NO ACUTE RESP DISTRESS NOTED ON 2L NC. CHEST TUBE TO RT SIDE DRAINING, DRESSING CDI. PT C/O PAIN 11/02 CHRONIC LOWER BACK. MEDICATED PER EMAR. WILL CONTINUE TO MONITOR. CALL LIGHT IN REACH. BED IN LOWEST POSITION.
[2018-07-22 14:58] VITALS: BP 105/68
--- NOTE | 2018-07-22 16:52 | NUR ---
PT SITTING UP IN BED. NO ACUTE RESP DISTRESS NOTED ON 2L NC. CHEST TUBE DRAINAGED SYSTEM CHANGED. NOTED 210 CC OF DRAINAGE, CHANGED DRESSING TO RT CHEST TUBE SITE REINFORCED WITH ABD PAD GAUZE AND FOAM TAPE. PT TOLERATED WELL. INFOMRED PT AND CO OF TRANSFER TO [facility] AT 1830. PER CO CALLED ASSISTED AND NOTIFIED OF TRANSFER. WILL CONTINUE TO MONITOR. CALL LIGHT IN REACH. BED IN LOWEST POSITION.
[2018-07-22 17:45] VITALS: BP 98/61
--- NOTE | 2018-07-22 18:12 | NUR ---
REPORT GIVEN TO JUNE NATHAN AT [facility].
--- NOTE | 2018-07-22 18:21 | NUR ---
PT SITTING UP IN BED. NO ACUTE RESP DISTRESS NOTED ON 2L NC. CHEST TUBE INSERTION SITE CDI, NO DRAINAGE NOTED. IV PATENT AND INFUSING. NO REDNESS OR SWELLING NOTED. PT C/O PAIN 9/10 CHRONIC LOWER BACK PAIN. MEDICATED PER EMAR. WILL CONTINUE TO MONITOR. CALL LIGHT IN REACH. BED IN LOWEST POSITION.
--- NOTE | 2018-07-22 18:49 | NUR ---
PT IN BED RESTING. NO ACUTE RESP DISTRESS NOTED ON 2L NC. CHEST TUBE TO RT CHEST DRESSING INTACT, WALL SUCTION SET TO 15. IV TO LFA PATENT AND INFUSING. NO REDNESS OR SWELLING NOTED. WILL ENDORSE TO TIE PRESSER RN. CALL LIGHT IN REACH. BED IN LOWEST POSITION.
--- NOTE | 2018-07-22 19:20 | NUR ---
PT RECEIVED A/O X4, ABLE TO MAKE NEEDS KNOWN. TELE #31, DENIES ANY CP/PRESSURE. PULSES PALPABLE, NO EDEMA PRESENT.. BREATHING IS EVEN AND UNLABORED ON 2L NC, 02 SAT-96%. RIGHT CHEST TUBE IN PLACE TO WALL SUCTION, DRSG CDI, 40 ML YELLOW OUTPUT NOTED. PT ADMITS TO SOB WHEN TALKING OR AMBULATING. NO RESP DISTRESS NOTED. ABD SOFT AND NONDISTENDED, DENIES ANY N/V. CONDOM CATH IN PLACE, YELLOW URINE NOTED IN DRAINAGE BAG. GENERALIZED WEAKNESS, AMBULATORY WITH ASSIST. ECCHYMOSIS TO BUE, NECK, RIGHT SIDE OF CHEST, AND BUTTOCKS. PT DENIES ANY PAIN AT THIS TIME. IV TO LFA, PATENT AND INTACT, SITE FREE FROM REDNESS OR SWELLING. BED IN LOWEST SETTING, BED ALARM ON, SIDE RAILS UP X2, CALL LIGHT WITHIN REACH. GUARDS AT BEDSIDE. PT AWAITING TRANSFER TO [facility] AT [facility] [[email or web address] TRANSFER TO ARRIVE AT 22:30. WILL CONT TO MONITOR.
[2018-07-22 21:43] VITALS: BP 102/62
--- NOTE | 2018-07-22 21:56 | NUR ---
[facility] TRANSPORT TEAM ARRIVED. REPORT GIVEN TO JOHNNIE NATHAN, ALL QUESTIONS AND CONCERNS ADDRESSED.
--- NOTE | 2018-07-22 22:02 | NUR ---
PT C/O 8 BACK PAIN, PRN NORCO GIVEN ORDERED. NO ACUTE DISTRESS NOTED. WILL CONT TO MONITOR.
--- NOTE | 2018-07-22 22:19 | NUR ---
PER [facility] OFFICER, "WE'RE WAITING FOR A [facility] VEHICLE, IT IS SCHEDULED FOR 2229." PER JOHNNIE RN ([facility] TRANSPORT TEAM), "WE CAN'T LEAVE UNTIL THE [facility] VEHICLE IS HERE, BUT WE WILL PLACE THE PT ON THE GURNEY SO HE'S SETTLED." CALLED [facility] AND SPOKE WITH CHARGE NURSE-PIETER, UPDATED CORRESPONDENCE SECTION SUPERVISOR REGARDING SITUATION. PER PIETER, "THAT'S FINE, HE STILL HAS THE ROOM FOR HIM HERE." WILL CALL PIETER WHEN PT LEAVES THE UNIT. PT LAYING IN GURNEY, CHEST TUBE IN PLACE, NO ACUTE DISTRESS NOTED. WILL CONT TO MONITOR.
--- NOTE | 2018-07-22 23:09 | NUR ---
PER [facility] OFFICER, "WE ALREADY CALLED FOR THE [facility] TRANSPORT, AND THEY SAID THEY'RE ON THEIR WAY, BUT WE'VE BEEN WAITING." PT REMAINS ON GURNEY, NO ACUTE DISTRESS NOTED. WILL CONT TO MONITOR.
--- NOTE | 2018-07-22 23:45 | NUR ---
PT LEFT UNIT VIA GURNEY ACCOMPANIED BY [facility] TEAM AND [facility] OFFICERS. CHEST TUBE AND IV SITE IN PLACE. NO ACUTE DISTRESS NOTED. ALL BELONGINGS AND PAPERWORK WITH PT. [facility] CALLED AND UPDATED CHARGE NURSE-PIETER THAT PT LEFT UNIT AND IS ON THE WAY. ALL QUESTIONS AND CONCERNS ADDRESSED.
== END 2018-07-22 23:45 | disposition short-term general hospital (02) | DRG 871 ==
LOC: ED 16:20 → IC 21:18 → DU 07-10 16:34 → IC 07-10 16:36 → DU 07-10 17:11
PROVIDERS: Emergency Medicine; Internal Medicine; Internal Medicine Cardiovascular Disease; ADMIT Internal Medicine
PROC: 0W9930Z Drainage of Right Pleural Cavity with Drainage Device, Percutaneous Approach (ICD-10-PCS; principal; 2018-07-08)
PROC: 30233K1 Transfusion of Nonautologous Frozen Plasma into Peripheral Vein, Percutaneous Approach (ICD-10-PCS; 2018-07-08)
PROC: 02HV33Z Insertion of Infusion Device into Superior Vena Cava, Percutaneous Approach (ICD-10-PCS; 2018-07-09)
PROC: B548ZZA Ultrasonography of Superior Vena Cava, Guidance (ICD-10-PCS; 2018-07-09)
PROC: 0W9930Z Drainage of Right Pleural Cavity with Drainage Device, Percutaneous Approach (ICD-10-PCS; 2018-07-14)
PROC: 0WP8X0Z Removal of Drainage Device from Chest Wall, External Approach (ICD-10-PCS; 2018-07-14)
DX: A41.9 Sepsis, unspecified organism (principal); J96.91 Respiratory failure, unspecified with hypoxia; R65.21 Severe sepsis with septic shock; R57.0 Cardiogenic shock; J18.9 Pneumonia, unspecified organism; T85.618A Breakdown (mechanical) of other specified internal prosthetic devices, implants and grafts, initial encounter; J94.2 Hemothorax; E87.1 Hypo-osmolality and hyponatremia; I13.0 Hypertensive heart and chronic kidney disease with heart failure and stage 1 through stage 4 chronic kidney disease, or unspecified chronic kidney disease; N17.9 Acute kidney failure, unspecified; I42.0 Dilated cardiomyopathy; J91.8 Pleural effusion in other conditions classified elsewhere; I50.20 Unspecified systolic (congestive) heart failure; R18.8 Other ascites; I48.2 Chronic atrial fibrillation; N18.9 Chronic kidney disease, unspecified; K74.60 Unspecified cirrhosis of liver; M45.9 Ankylosing spondylitis of unspecified sites in spine; B18.2 Chronic viral hepatitis C; E87.5 Hyperkalemia; K21.9 Gastro-esophageal reflux disease without esophagitis; C61 Malignant neoplasm of prostate; I25.10 Atherosclerotic heart disease of native coronary artery without angina pectoris; Z68.20 Body mass index [BMI] 20.0-20.9, adult; Z79.01 Long term (current) use of anticoagulants; Z95.810 Presence of automatic (implantable) cardiac defibrillator; I25.2 Old myocardial infarction; Z87.01 Personal history of pneumonia (recurrent); Z82.0 Family history of epilepsy and other diseases of the nervous system; Z82.49 Family history of ischemic heart disease and other diseases of the circulatory system; Z92.21 Personal history of antineoplastic chemotherapy; Y83.8 Other surgical procedures as the cause of abnormal reaction of the patient, or of later complication, without mention of misadventure at the time of the procedure; Y92.89 Other specified places as the place of occurrence of the external cause
CPT/HCPCS: 32551; 36556; 83880; 94150; C1729; G0500; J1720; J1940; J2001; J2250; J2405; J2543; J2550; J3010; J3430; J3490; J7030; J7040; J7050; J7620; J8999; P9059; Q0092